=== PATIENT | male | born 1960 | race Caucasian/White ===

== ENCOUNTER 2018-01-02 20:00 | Inpatient (IN) | payer MEDICAID, MEDICARE ==
--- NOTE | 2018-01-02 21:15 | EKG REPORT ---
SEVERITY:- BORDERLINE ECG - SINUS RHYTHM PROBABLE LEFT ATRIAL ABNORMALITY BORDERLINE T WAVE ABNORMALITIES : Confirmed by: Dimas Rivera MD 02-Jan-2018 21:14:20
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
[2018-01-02 21:56] LABS: ABSOLUTE BASOPHILS # (AUTO) 0.1 10^3/uL (0.0-0.2); ABSOLUTE EOSINOPHILS # (AUTO) 0.1 10^3/uL (0.0-0.6); ABSOLUTE LYMPHOCYTES (AUTO) 1.4 10^3/uL (0.5-4.7); ABSOLUTE MONOCYTES (AUTO) 0.9 10^3/uL (0.1-1.4); ABSOLUTE NEUT (AUTO) 5.8 10^3/uL (1.7-8.2); BASOPHILS % (AUTO) 0.7 % (0-2); EOSINOPHILS % (AUTO) 0.6 % (0-6); HEMATOCRIT 33.3 % (37.9-51.0); HEMOGLOBIN 11.6 g/dL (13.5-17.0); LYMPHOCYTES % (AUTO) 17.6 % (13-45); MEAN CORPUSCULAR HEMOGLOBIN 32.3 pg (27.0-33.4); MEAN CORPUSCULAR HGB CONC 34.7 g/dL (32.0-36.0); MEAN CORPUSCULAR VOLUME 93 fl (80-97); MONOCYTES % (AUTO) 10.4 % (3-13); PLATELET COUNT 201 10^3/uL (150-450); RED BLOOD COUNT 3.57 10^6/uL (4.35-5.55); RED CELL DISTRIBUTION WIDTH 13.6 % (11.5-14.0); SEGMENTED NEUTROPHILS % (AUTO) 70.7 % (42-78); TOTAL CELLS COUNTED % (AUTO) 100 %; WHITE BLOOD COUNT 8.2 10^3/uL (4.0-10.5)
[2018-01-02 22:14] LABS: ALANINE AMINOTRANSFERASE 442 U/L (21-72); ALBUMIN 3.5 g/dL (3.5-5.0); ALKALINE PHOSPHATASE 117 U/L (38-126); ANION GAP 12 (5-19); BILIRUBIN,DIRECT 0.5 mg/dL (0.0-0.4); BILIRUBIN,TOTAL 0.7 mg/dL (0.2-1.3); BLOOD UREA NITROGEN 19 mg/dL (7-20); CALCIUM 8.8 mg/dL (8.4-10.2); CARBON DIOXIDE 29 mmol/L (22-30); CHLORIDE 84 mmol/L (98-107); SODIUM 125.1 mmol/L (137-145); TOTAL PROTEIN 6.3 g/dL (6.3-8.2)
[2018-01-02 22:32] LABS: ASPARTATE AMINO TRANSFERASE 869 U/L (17-59)
--- NOTE | 2018-01-02 22:32 | ER Document Report ---
ED General - General Chief Complaint: High Blood Sugar Stated Complaint: POSSIBLE HYPOGLYCEMIA Time Seen by Provider: 01/02/18 21:33 Notes: Patient is a 57-year-old male presents with complaint of high blood sugar. Patient says that they recently increased rent in his apartment. He therefore had to leave. Said he had his insulin stuff with him and then he thinks someone might of stool from his back. He normally takes 30 units of Lantus at night and then NovoLog 3 times a day. Patient says he has been several days now without his insulin. He says today start feels if his sugars get high. He said he also developed some indigestion in the he had some burning type sensation going into his chest but when he burped it relieves it. He does have history of DKA in the past. He says he does not feel as if he is to that point but he does not want to get to the point either. Also complains of depression. Says since being kicked out of his apartment is felt depressed and had thoughts of suicide, but no true suicidal plan. He also is a former alcoholic and says he did go back to drinking some alcohol. He says that it is not huge amounts but he is had 2 bottles of liquor over the course of the last 6 or 7 days. Denies any fevers. No vomiting. No diarrhea. No other complaints at this time. TRAVEL OUTSIDE OF THE [place] IN LAST 30 DAYS: No - Related Data Allergies/Adverse Reactions: Penicillins Allergy (Severe, Verified 04/17/15 08:30) Swelling of Throat Past Medical History - Social History Smoking Status: Unknown if Ever Smoked Frequency of alcohol use: Heavy Drug Abuse: None Family History: CAD Endocrine Medical History: Reports: Hx Diabetes Mellitus Type 1, Hx Diabetes Mellitus Type 2 GI Medical History: Reports: Hx Gastroesophageal Reflux Disease, Hx Ulcer Musculoskeltal Medical History: Reports Hx Arthritis - RA Psychiatric Medical History: Reports: Hx Depression Past Surgical History: Reports: Hx Cholecystectomy, Hx Orthopedic Surgery - right rotator, right hand carpel sheeba, left knee - Immunizations Hx Diphtheria, Pertussis, Tetanus Vaccination: Yes Hx Pneumococcal Vaccination: 04/23/14 Review of Systems - Review of Systems Notes: My Normal Review Basic REVIEW OF SYSTEMS: CONSTITUTIONAL : Denies fever, chills, or sweats. Denies recent illness. EENT: Denies eye, ear, throat, or mouth pain or symptoms. Denies nasal or sinus congestion. CARDIOVASCULAR: Lower chest pain RESPIRATORY: Denies cough, cold, or chest congestion. Denies shortness of breath, difficulty breathing, or wheezing. GASTROINTESTINAL: epigastric abdominal pain. Denies nausea, vomiting, or diarrhea. Denies constipation. Last BM: GENITOURINARY: Denies difficulty urinating, painful urination, burning, frequency, or blood in urine. MUSCULOSKELETAL: Denies neck or back pain or joint pain or swelling. SKIN: Denies rash or skin lesions. NEUROLOGICAL: Denies altered mental status or loss of consciousness. Denies headache. Denies weakness or paralysis or loss of use of either side. Denies problems with gait or speech. Denies sensory or motor loss. PSYCHIATRIC: Depression ALL OTHER SYSTEMS REVIEWED AND NEGATIVE. Physical Exam - Vital signs Vitals: Temp Pulse Resp BP Pulse Ox 98.2 F 99 20 130/84 H 99 01/02/18 20:34 01/02/18 20:34 01/02/18 20:34 01/02/18 20:34 01/02/18 20:34 - Notes Notes: General Appearance: Well nourished, alert, cooperative, no acute distress, no obvious discomfort. Vitals: reviewed, See vital signs table. Head: no swelling or tenderness to the head Eyes: PERRL, EOMI, Conjuctiva clear Mouth: No decreasd moisture Throat: No tonsillar inflammation, No airway obstruction, No lymphadenopathy Neck: Supple, no neck tenderness, Lungs: No wheezing, No rales, No rhonci, No accessory muscle use, good air exchange bilaterally. Heart: Normal rate, Regular rythm, No murmur, no rub Abdomen: Normal BS, soft, No rigidity, no diffuse abdominal tenderness, No guarding, no rebound, no abdominal masses, no organomegaly Extremities: strength 5/5 in all extremities, good pulses in all extremities, no swelling or tenderness in the extremities, no edema. Skin: warm, dry, appropriate color, no rash Neuro: speech clear, oriented x 3, normal affect, responds appropriately to questions. Course - Re-evaluation Re-evalutation: 01/02/18 23:[address] Bailey, patient's primary care physician, and reviewed the patient 's laboratory findings as well as history and presentation with him. He agrees to admit the patient. I did discuss plan with the patient he is agreeable to admission as well. Dictation of this chart was performed using voice recognition software; therefore, there may be some unintended grammatical errors. - Vital Signs Vital signs: Temp Pulse Resp BP Pulse Ox 98.2 F 99 20 130/84 H 99 01/02/18 20:34 01/02/18 20:34 01/02/18 20:34 01/02/18 20:34 01/02/18 20:34 - Laboratory Result Diagrams: 01/02/18 19:55 01/02/18 19:55 Laboratory results interpreted by me: 01/02/18 01/02/18 01/02/18 19:55 19:55 19:55 RBC 3.57 L Hgb 11.6 L Hct 33.3 L VBG pH Sodium 125.1 L Potassium 2.9 L* Chloride 84 L Glucose 421 H* Direct Bilirubin 0.5 H AST 869 H ALT 442 H Lipase 7614.2 H Urine Glucose (UA) Urine Blood 01/02/18 01/02/18 22:00 22:35 RBC Hgb Hct VBG pH 7.43 H Sodium Potassium Chloride Glucose Direct Bilirubin AST ALT Lipase Urine Glucose (UA) >=500 H Urine Blood SMALL H - EKG Interpretation by Me Additional EKG results interpreted by me: 01/02/18 22:31 EKG is reviewed and interpreted by me. EKG shows normal sinus rhythm with a rate of [address] segment elevation or depression. No ischemic T-wave inversions. CO interval, QRS duration, QTc intervals are within normal range. Old EKG for comparison is from April 17, 2015. Discharge - Discharge Clinical Impression: Hyperglycemia, Hypokalemia Pancreatitis Qualifiers: Chronicity: acute Pancreatitis type: alcohol induced Acute pancreatitis complication: no infection or necrosis Qualified Code(s): K85.20 - Alcohol induced acute pancreatitis without necrosis or infection Depression Qualifiers: Depression Type: unspecified Qualified Code(s): F32.9 - Major depressive disorder, single episode, unspecified Condition: Stable Disposition: ADMITTED INPATIENT Admitting Provider: Reanna Unit Admitted: [facility] Referrals: SHASHANK BAILEY MD [Primary Care Provider] - Follow up as needed
[2018-01-02 22:34] LABS: GLUCOSE 421 mg/dL (75-110); POTASSIUM 2.9 mmol/L (3.6-5.0)
[2018-01-02] MEDS ORDERED: POTASSIUM CHLORIDE 10 MEQ CAPSULE.ER PO ONE ×2 (22:37→22:44)
[2018-01-02] MEDS ORDERED: INSULIN REG, HUMAN 100 UNIT/ML 3 ML VIAL (PYX) SUBCUT ONE ×2 (22:37→23:40)
[2018-01-02] MEDS ORDERED: INSULIN GLARGINE,HUM.REC.ANLOG 1,000 UNIT/10 ML UNIT SUBCUT ONE (22:38)
[2018-01-02 22:39] LABS: APPEARANCE,URINE CLEAR; BILIRUBIN,URINE NEGATIVE (NEGATIVE); COLOR,URINE COLORLESS; GLUCOSE, URINE >=500 mg/dL (NEGATIVE); KETONES,URINE NEGATIVE (NEGATIVE); LEUKOCYTE ESTERASE,URINE NEGATIVE (NEGATIVE); NITRITE,URINE NEGATIVE (NEGATIVE); PROTEIN,URINE NEGATIVE (NEGATIVE); URINE SPECIFIC GRAVITY 1.003; UROBILINOGEN,URINE NEGATIVE mg/dL (<2.0)
[2018-01-02] MEDS ORDERED: NORMAL SALINE 1000 ML 1,000 ML IV ONE (22:44)
[2018-01-02] MEDS ORDERED: ONDANSETRON 4 MG TAB.RAPDIS PO ONE (22:44)
[2018-01-02 22:59] LABS: VENOUS BLOOD BASE EXCESS 5.9 mmol/L; VENOUS BLOOD HCO3 31.7 mmol/L (20-32); VENOUS BLOOD PCO2 49.3 mmHg (35-63); VENOUS BLOOD PH 7.43 (7.30-7.42)
[2018-01-02 23:27] LABS: LIPASE 7614.2 U/L (23-300)
[2018-01-02] MEDS ORDERED: FENTANYL CITRATE INJ/PF 100 MCG/2 ML AMPUL IV ONE (23:49)
[2018-01-02] MEDS: POTASSI CL 20 MEQ/50 ML RIDER 20 MEQ/50 ML RTUPB IV SCH (23:51)
[2018-01-03] MEDS ORDERED: POTASSI CL 20 MEQ/NS 1L 1000 ML IV PRN (01:42)
[2018-01-03] MEDS ORDERED: LORAZEPAM INJ 2 MG/1 ML VIAL IV PRN (01:50)
[2018-01-03] MEDS ORDERED: ZOLPIDEM TARTRATE 5 MG TABLET PO PRN (01:55)
[2018-01-03] MEDS ORDERED: IMIPENEM/CILASTATIN SODIUM INJ 500 MG VIAL IV PRN (01:58)
[2018-01-03] MEDS: POTASSI CL 20 MEQ/50 ML RIDER 20 MEQ/50 ML RTUPB IV SCH (02:50)
[2018-01-03] MEDS ORDERED: DEXTROSE 40% GEL 15 GM TUBE X 2 PO PRN (05:22)
[2018-01-03] MEDS ORDERED: DEXTROSE 50%-WATER SYRINGE 12.5 GM/25 ML DOSE IV PRN (05:22)
[2018-01-03] MEDS ORDERED: GLUCAGON,HUMAN RECOMB 1 MG INJ IM PRN (05:22)
[2018-01-03] MEDS ORDERED: DEXTROSE 40% GEL 15 GM TUBE PO PRN (05:22)
[2018-01-03] MEDS ORDERED: DEXTROSE 50%-WATER SYRINGE 25 GM/50 ML DOSE IV PRN (05:22)
[2018-01-03] MEDS ORDERED: ACETAMINOPHEN 325 MG TABLET PO PRN (05:48)
[2018-01-03] MEDS ORDERED: IMIPENEM/CILASTATIN SODIUM INJ 500 MG VIAL IV ONE (06:06)
[2018-01-03 06:26] LABS: HEMATOCRIT 33.3 % (37.9-51.0); HEMOGLOBIN 11.7 g/dL (13.5-17.0); MEAN CORPUSCULAR HEMOGLOBIN 32.2 pg (27.0-33.4); MEAN CORPUSCULAR HGB CONC 35.1 g/dL (32.0-36.0); MEAN CORPUSCULAR VOLUME 92 fl (80-97); PLATELET COUNT 191 10^3/uL (150-450); RED BLOOD COUNT 3.63 10^6/uL (4.35-5.55); RED CELL DISTRIBUTION WIDTH 13.5 % (11.5-14.0); WHITE BLOOD COUNT 5.8 10^3/uL (4.0-10.5)
[2018-01-03] MEDS: IMIPENEM/CILASTATIN SODIUM 500 MG in NORMAL SALINE 100 ML IV SCH ×4 (06:37→21:16)
[2018-01-03 06:47] LABS: ALANINE AMINOTRANSFERASE 462 U/L (21-72); ALKALINE PHOSPHATASE 100 U/L (38-126); AMYLASE 445 U/L (30-110); BILIRUBIN,DIRECT 0.2 mg/dL (0.0-0.4); BILIRUBIN,TOTAL 0.7 mg/dL (0.2-1.3); BLOOD UREA NITROGEN 13 mg/dL (7-20); CALCIUM 8.9 mg/dL (8.4-10.2); CHOLESTEROL 179.21 mg/dL (0-200); GLUCOSE 90 mg/dL (75-110); POTASSIUM 3.8 mmol/L (3.6-5.0); TOTAL PROTEIN 5.6 g/dL (6.3-8.2); TRIGLYCERIDES 95 mg/dL (<150)
[2018-01-03 06:52] LABS: ANION GAP 5 (5-19); CARBON DIOXIDE 33 mmol/L (22-30); CHLORIDE 103 mmol/L (98-107); SODIUM 141.2 mmol/L (137-145)
[2018-01-03 06:58] LABS: DIRECT LDL 90 mg/dL (<100)
[2018-01-03 06:59] LABS: ASPARTATE AMINO TRANSFERASE 834 U/L (17-59)
[2018-01-03 07:06] LABS: LIPASE 6482.9 U/L (23-300)
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
[2018-01-03] MEDS: LISINOPRIL 10 MG TABLET PO SCH (10:06)
[2018-01-03] MEDS: CITALOPRAM HYDROBROMIDE 20 MG TABLET PO SCH (10:07)
[2018-01-03] MEDS: GABAPENTIN 400 MG CAPSULE PO SCH ×3 (10:07→17:46)
[2018-01-03] MEDS: ENOXAPARIN SODIUM INJ 40 MG/0.4 ML DISP.SYRIN SUBCUT SCH (10:11)
[2018-01-03] MEDS: PANTOPRAZOLE SODIUM 40 MG VIAL IV SCH (10:12)
[2018-01-03] MEDS: MORPHINE SULFATE 10 MG/ML INJ IV PRN ×3 (10:13→21:43)
--- NOTE | 2018-01-03 11:25 | RADIOLOGY REPORT (SQ) ---
EXAM DESCRIPTION: U/S ABDOMEN COMPLETE W/DOPPLER COMPLETED DATE/TIME: 01/03/2018 10:40 am REASON FOR STUDY: pancreatitis COMPARISON: Abdominal series 04/17/2015 TECHNIQUE: Dynamic and static grayscale images acquired of the abdomen and recorded on PACS. Additio nal selected color Doppler and spectral images recorded. LIMITATIONS: Upper abdominal bowel gas. Pancreatic tail and spleen not well seen. FINDINGS: PANCREAS: Midline pancreas is unremarkable LIVER: No masses. Echotexture normal. LIVER VASCULATURE: Normal directional flow of the main portal vein and hepatic veins. GALLBLADDER: Surgically absent ULTRASOUND-DETECTED MAE'S SIGN: Not applicable INTRAHEPATIC DUCTS AND COMMON DUCT: CBD and intrahepatic ducts normal caliber. No filling defects. INFERIOR VENA CAVA: Normal flow. AORTA: No aneurysm. RIGHT KIDNEY: Normal size. Normal echogenicity. No solid or suspicious masses. No hydronephros is. No calcifications. LEFT KIDNEY: Normal size. Normal echogenicity. No solid or suspicious masses. 3 cm cyst left up per pole kidney. No hydronephrosis. No calcifications. SPLEEN: Not well seen PERITONEAL AND PLEURAL SPACES: No ascites or effusions. OTHER: No other significant finding. IMPRESSION: Post cholecystectomy. No biliary ductal dilatation. Pancreatic tail and spleen are not well seen. Otherwise unremarkable study. TECHNICAL DOCUMENTATION: JOB ID: [id number] [employer]- All Rights Reserved Reading location - IP/workstation name: [email or web address]
[2018-01-03] MEDS ORDERED: POTASSI CL 20 MEQ/D5NS 1L 1000 ML IV PRN (12:03)
[2018-01-03] MEDS: POTASSI CL 20 MEQ/D5NS 1L 1000 ML IV PRN (12:06)
--- NOTE | 2018-01-03 16:26 | PSYCHOLOGICAL NOTE ---
Psych Note - Psych Note Psych Note: Reason for Consult: Depression Patient is a 57-year-old male presents with complaint of high blood sugar. Patient says that they recently increased rent in his apartment. He therefore had to leave. He reports depression and requests psychiatric evaluation. Patient disclosed that he has been feeling very depressed because on December 22 he had to leave his apartment. He states that he had that apartment for 3 years and was never late for any of his rent or bills. He states that they increased his rent which she was unable to continue pain so packed his stuff up and left. He confirms he did not wait for eviction process because he did not want to get the "law involved." He reports that he has been homeless before but is very despondent of having "to do this again." Disclosed frustration with "greed ," which he blames for losing his apartment. He reports he makes just enough money to pay his bills and rent however when it was increased he was unable to do that. He disclosed he went [facility] [place] [facility] and then the set her hotel however there is no availability. He expressed suicidal comments however states that if he received assistance or a plan on how to get back on his feet he could "see a way out." He disclosed that he needs a fridge for his medications and has also lost his food stamps; "but I just have a place to stay I can deal with not having food stamps." Patient reports that he has relapsed on drinking after about 20 years of sobriety because of this. Patient is alert and orientated to person, place, time and circumstance. Mood is he dysphoric with restricted affect. Patient expresses passive suicidal ideation i.e. no plans means or intent. While patient makes some suicidal comments, patient is forward thinking and denies wanting to harm himself as long as he gets help. Patient denies homicidal ideation. Delusions are absent behaviors congruent with intact reality based presentation i.e. organized and linear thought processes. Eye contact is well-maintained. Conversational speech was within normal rate, tone and prosody. Intellectual abilities appear to be within the average range. Attention and concentration were good. Insight , judgment, impulse control is fair. Clinician contacted [facility] to submit referral for patient for further assistance V60.0 (Z59.0) homelessness 311 (F32.9) unspecified depressive disorder in connection with homelessness Impression\\plan: Patient is cleared from acute psychiatric services. Patient discloses being depressed and overwhelmed from being homeless. Patient expresses passive suicidal ideation i.e. no plans means or intent. While patient does make some suicidal comments patient is forward thinking and denies wanting to harm himself if he receives assistance. Patient does not meet IVC criteria per [place] 122C. referral has been submitted to the community [facility]ics program. Patient is recommended for continued outpatient substance abuse and mental health treatment upon discharge. Patient can receive mental health crisis support with [facility]. Dr. Knowles was consulted and the care and management of this patient.
[2018-01-03] MEDS: INSULIN LISPRO 100 UNIT/ML 3 ML VIAL SUBCUT PRN ×2 (19:09→22:11)
[2018-01-03] MEDS: PROMETHAZINE HCL INJ 25 MG/1 ML VIAL IV PRN (21:38)
[2018-01-03] MEDS ORDERED: INSULIN GLARGINE,HUM.REC.ANLOG 300 UNIT/3 ML INSULN.PEN SUBCUT SCH (22:00)
[2018-01-04] MEDS: IMIPENEM/CILASTATIN SODIUM 500 MG in NORMAL SALINE 100 ML IV SCH ×4 (03:51→21:57)
[2018-01-04] MEDS: POTASSI CL 20 MEQ/D5NS 1L 1000 ML IV PRN (03:51)
[2018-01-04] MEDS: MORPHINE SULFATE 10 MG/ML INJ IV PRN ×4 (04:01→21:57)
[2018-01-04 05:21] LABS: HEMATOCRIT 33.8 % (37.9-51.0); HEMOGLOBIN 11.7 g/dL (13.5-17.0); MEAN CORPUSCULAR HEMOGLOBIN 32.5 pg (27.0-33.4); MEAN CORPUSCULAR HGB CONC 34.6 g/dL (32.0-36.0); MEAN CORPUSCULAR VOLUME 94 fl (80-97); PLATELET COUNT 238 10^3/uL (150-450); RED BLOOD COUNT 3.59 10^6/uL (4.35-5.55); RED CELL DISTRIBUTION WIDTH 13.9 % (11.5-14.0); WHITE BLOOD COUNT 7.8 10^3/uL (4.0-10.5)
[2018-01-04 05:43] LABS: ALANINE AMINOTRANSFERASE 505 U/L (21-72); ALBUMIN 2.9 g/dL (3.5-5.0); ALKALINE PHOSPHATASE 96 U/L (38-126); AMYLASE 386 U/L (30-110); ANION GAP 7 (5-19); ASPARTATE AMINO TRANSFERASE 685 U/L (17-59); BILIRUBIN,DIRECT 0.3 mg/dL (0.0-0.4); BILIRUBIN,TOTAL 0.4 mg/dL (0.2-1.3); BLOOD UREA NITROGEN 11 mg/dL (7-20); CALCIUM 8.7 mg/dL (8.4-10.2); CARBON DIOXIDE 29 mmol/L (22-30); CHLORIDE 107 mmol/L (98-107); CHOLESTEROL 156.31 mg/dL (0-200); GLUCOSE 44 mg/dL (75-110); POTASSIUM 3.4 mmol/L (3.6-5.0); TOTAL PROTEIN 5.4 g/dL (6.3-8.2); TRIGLYCERIDES 110 mg/dL (<150)
[2018-01-04 05:52] LABS: LIPASE 3527.1 U/L (23-300)
[2018-01-04 05:54] LABS: DIRECT LDL 81 mg/dL (<100)
[2018-01-04] MEDS: PANTOPRAZOLE SODIUM 40 MG VIAL IV SCH (09:47)
[2018-01-04] MEDS: GABAPENTIN 400 MG CAPSULE PO SCH ×3 (09:48→17:45)
[2018-01-04] MEDS: CITALOPRAM HYDROBROMIDE 20 MG TABLET PO SCH (09:48)
[2018-01-04] MEDS: LISINOPRIL 10 MG TABLET PO SCH (09:48)
[2018-01-04] MEDS: ENOXAPARIN SODIUM INJ 40 MG/0.4 ML DISP.SYRIN SUBCUT SCH (09:50)
[2018-01-04] MEDS ORDERED: POTASSI CL 20 MEQ/50 ML RIDER 20 MEQ/50 ML RTUPB IV ONE (10:00)
[2018-01-04] MEDS: PROMETHAZINE HCL INJ 25 MG/1 ML VIAL IV PRN (14:57)
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
[2018-01-04] MEDS: INSULIN LISPRO 100 UNIT/ML 3 ML VIAL SUBCUT PRN (17:45)
[2018-01-04] MEDS ORDERED: POTASSI CL 20 MEQ/D5NS 1L 1000 ML IV PRN (19:06)
[2018-01-04] MEDS ORDERED: DEXTROSE 5%-WATER 1000 ML 1,000 ML with POTASSIUM CHLORIDE 20 MEQ IV PRN ×2 (20:00)
[2018-01-05] MEDS: INSULIN LISPRO 100 UNIT/ML 3 ML VIAL SUBCUT PRN ×3 (02:54→21:33)
[2018-01-05] MEDS: IMIPENEM/CILASTATIN SODIUM 500 MG in NORMAL SALINE 100 ML IV SCH ×4 (02:54→20:28)
[2018-01-05] MEDS: MORPHINE SULFATE 10 MG/ML INJ IV PRN ×4 (02:54→17:39)
[2018-01-05 05:28] LABS: ABSOLUTE BASOPHILS # (AUTO) 0.1 10^3/uL (0.0-0.2); ABSOLUTE EOSINOPHILS # (AUTO) 0.3 10^3/uL (0.0-0.6); ABSOLUTE LYMPHOCYTES (AUTO) 2.5 10^3/uL (0.5-4.7); ABSOLUTE MONOCYTES (AUTO) 1.2 10^3/uL (0.1-1.4); ABSOLUTE NEUT (AUTO) 3.6 10^3/uL (1.7-8.2); BASOPHILS % (AUTO) 0.9 % (0-2); EOSINOPHILS % (AUTO) 3.7 % (0-6); HEMATOCRIT 33.5 % (37.9-51.0); HEMOGLOBIN 11.6 g/dL (13.5-17.0); LYMPHOCYTES % (AUTO) 32.5 % (13-45); MEAN CORPUSCULAR HEMOGLOBIN 32.3 pg (27.0-33.4); MEAN CORPUSCULAR HGB CONC 34.4 g/dL (32.0-36.0); MEAN CORPUSCULAR VOLUME 94 fl (80-97); MONOCYTES % (AUTO) 15.3 % (3-13); PLATELET COUNT 297 10^3/uL (150-450); RED BLOOD COUNT 3.57 10^6/uL (4.35-5.55); RED CELL DISTRIBUTION WIDTH 14.1 % (11.5-14.0); SEGMENTED NEUTROPHILS % (AUTO) 47.6 % (42-78); TOTAL CELLS COUNTED % (AUTO) 100 %; WHITE BLOOD COUNT 7.6 10^3/uL (4.0-10.5)
[2018-01-05 05:58] LABS: ALANINE AMINOTRANSFERASE 482 U/L (21-72); ALBUMIN 2.9 g/dL (3.5-5.0); ALKALINE PHOSPHATASE 96 U/L (38-126); AMYLASE 278 U/L (30-110); ANION GAP 7 (5-19); ASPARTATE AMINO TRANSFERASE 572 U/L (17-59); BILIRUBIN,DIRECT 0.3 mg/dL (0.0-0.4); BILIRUBIN,TOTAL 0.3 mg/dL (0.2-1.3); BLOOD UREA NITROGEN 7 mg/dL (7-20); CALCIUM 8.9 mg/dL (8.4-10.2); CARBON DIOXIDE 29 mmol/L (22-30); CHLORIDE 105 mmol/L (98-107); GLUCOSE 158 mg/dL (75-110); LIPASE 1877.5 U/L (23-300); POTASSIUM 3.8 mmol/L (3.6-5.0); SODIUM 140.9 mmol/L (137-145); TOTAL PROTEIN 5.7 g/dL (6.3-8.2)
[2018-01-05] MEDS: GABAPENTIN 400 MG CAPSULE PO SCH ×3 (08:46→17:30)
[2018-01-05] MEDS: LISINOPRIL 10 MG TABLET PO SCH (08:46)
[2018-01-05] MEDS: CITALOPRAM HYDROBROMIDE 20 MG TABLET PO SCH (08:47)
[2018-01-05] MEDS: PANTOPRAZOLE SODIUM 40 MG VIAL IV SCH (08:49)
[2018-01-05] MEDS: ENOXAPARIN SODIUM INJ 40 MG/0.4 ML DISP.SYRIN SUBCUT SCH (08:49)
[2018-01-05 11:40] LABS: HEPATITIS A AB IGM Negative (Negative); HEPATITIS B CORE AB IGM Negative (Negative); HEPATITS B SURFACE ANTIGEN Negative (Negative)
[2018-01-05] MEDS ORDERED: INSULIN GLARGINE,HUM.REC.ANLOG 1,000 UNIT/10 ML UNIT SUBCUT ONE (13:00)
[2018-01-05] MEDS ORDERED: INSULIN LISPRO 100 UNIT/ML 3 ML VIAL SUBCUT ONE (13:00)
[2018-01-05 13:59] LABS: HEPATITIS C VIRUS ANTIBODY >11.0 s/co ratio (0.0-0.9)
--- NOTE | 2018-01-05 16:50 | PDOC PROGRESS REPORT ---
Subjective Progress Note for:: 01/05/18 Subjective:: He is doing better and no longer having nausea and he is tolerating food. His blood sugar this am was >550. We D/C IV Fluids Dextrose in saline and was given humalog insulin 20 iu stat subcut. We will keep the pt for the weekend since he is homeless ad has social issues. Reason For Visit: PANCREATITIS Physical Exam Vital Signs: Temp Pulse Resp BP Pulse Ox 97.7 F 89 21 H 127/73 H 100 01/05/18 15:24 01/05/18 15:24 01/05/18 15:24 01/05/18 15:24 01/05/18 15:24 Intake & Output 01/04/18 01/05/18 01/06/18 06:59 06:59 06:59 Intake Total 3131 4510 700 Output Total 3600 5625 500 Balance -469 -1115 200 Weight 62.9 kg 62.9 kg General appearance: PRESENT: no acute distress, cooperative, obese, well- developed, well-nourished Head exam: PRESENT: atraumatic, normocephalic Eye exam: PRESENT: EOMI, PERRLA Mouth exam: PRESENT: moist, neck supple, tongue midline Respiratory exam: PRESENT: clear to auscultation sanjiv, symmetrical Cardiovascular exam: PRESENT: +S1, +S2 Pulses: PRESENT: +2 pedal pulses bilateral GI/Abdominal exam: PRESENT: normal bowel sounds, soft Rectal exam: PRESENT: deferred Extremities exam: PRESENT: full ROM Musculoskeletal exam: PRESENT: full ROM Neurological exam: PRESENT: alert, awake, oriented to person, oriented to place , oriented to time Psychiatric exam: PRESENT: normal mood Results Laboratory Results: 01/05/18 05:12 01/05/18 05:12 01/05/18 01/05/18 05:12 05:12 WBC 7.6 RBC 3.57 L Hgb 11.6 L Hct 33.5 L MCV 94 MCH 32.3 MCHC 34.4 RDW 14.1 H Plt Count 297 Seg Neutrophils % 47.6 Lymphocytes % 32.5 Monocytes % 15.3 H Eosinophils % 3.7 Basophils % 0.9 Absolute Neutrophils 3.6 Absolute Lymphocytes 2.5 Absolute Monocytes 1.2 Absolute Eosinophils 0.3 Absolute Basophils 0.1 Sodium 140.9 Potassium 3.8 Chloride 105 Carbon Dioxide 29 Anion Gap 7 BUN 7 Creatinine 0.84 Est GFR ( Amer) > 60 Est GFR (Non-Af Amer) > 60 Glucose 158 H Calcium 8.9 Total Bilirubin 0.3 AST 572 H ALT 482 H Alkaline Phosphatase 96 Total Protein 5.7 L Albumin 2.9 L Amylase 278 H Lipase 1877.5 H Impressions: Abdomen Ultrasound 01/03/18 00:00 IMPRESSION: Post cholecystectomy. No biliary ductal dilatation. Pancreatic tail and spleen are not well seen. Otherwise unremarkable study. Assessment & Plan - Diagnosis (1) Acute pancreatitis Qualifiers: Pancreatitis type: alcohol induced Acute pancreatitis complication: unspecified Qualified Code(s): K85.20 - Alcohol induced acute pancreatitis without necrosis or infection Is this a current diagnosis for this admission?: Yes Plan: Ct with cardiac diet as tolerated; Morphine 2mg q4h IV prn; Promethazine 25 mg q6h IV prn since Zofran is out of stock. Ct with Imipenem 500 mg q6h IV. (2) Uncontrolled diabetes mellitus Qualifiers: Diabetes mellitus type: type 2 Diabetes mellitus [facility] insulin use: with [facility] use Diabetes mellitus complication detail: with polyneuropathy Is this a current diagnosis for this admission?: Yes Plan: Ct with accucheck q4h with slidding scale with humalog insuliin [facility] protocol; Ct with Lantus 40 iu qhs subcut; ct with 1800 calorie ADA diet. (3) Hypokalemia Is this a current diagnosis for this admission?: Yes Plan: He got KCL IV 20 MEQ and KCL PO at ED. He was given additional KCL 20 MEQ IVx1 today; monitor chemistries daily. (4) Hypertension Qualifiers: Hypertension type: essential hypertension Qualified Code(s): I10 - Essential (primary) hypertension Is this a current diagnosis for this admission?: Yes Plan: Ct with Lisinopril 20 mg qd po; 2 g sodium diet . (5) Hyperlipidemia Qualifiers: Hyperlipidemia type: mixed hyperlipidemia Qualified Code(s): E78.2 - Mixed hyperlipidemia Is this a current diagnosis for this admission?: Yes Plan: Ct with Atorvastatin 20mg qhs po; 200 mg cholesterol diet. (6) Gastroesophageal reflux disease Is this a current diagnosis for this admission?: Yes Plan: Ct with Protonix 40 mg qd IV. (7) Diabetic neuropathy Is this a current diagnosis for this admission?: Yes Plan: Ct with Gabapentin 800mg TID po. (8) Depression Qualifiers: Depression Type: unspecified Qualified Code(s): F32.9 - Major depressive disorder, single episode, unspecified Is this a current diagnosis for this admission?: Yes Plan: Ct with Citalopram 20 mg qd po. (9) AA (alcohol abuse) Is this a current diagnosis for this admission?: Yes Plan: Alcohol counseling done. Ativan 1mg q6h IV prn for anxiety/agitation. (10) DVT prophylaxis Is this a current diagnosis for this admission?: Yes Plan: Ct with Lovenox 40 mg qd subcut; SCD.
[2018-01-06] MEDS: IMIPENEM/CILASTATIN SODIUM 500 MG in NORMAL SALINE 100 ML IV SCH ×2 (02:20→09:00)
[2018-01-06] MEDS: LANSOPRAZOLE 30 MG TAB.RAP.DR PO SCH (05:12)
[2018-01-06 05:49] LABS: ABSOLUTE BASOPHILS # (AUTO) 0.1 10^3/uL (0.0-0.2); ABSOLUTE EOSINOPHILS # (AUTO) 0.2 10^3/uL (0.0-0.6); ABSOLUTE LYMPHOCYTES (AUTO) 2.1 10^3/uL (0.5-4.7); ABSOLUTE MONOCYTES (AUTO) 1.1 10^3/uL (0.1-1.4); ABSOLUTE NEUT (AUTO) 3.2 10^3/uL (1.7-8.2); BASOPHILS % (AUTO) 1.1 % (0-2); EOSINOPHILS % (AUTO) 3.4 % (0-6); HEMATOCRIT 31.4 % (37.9-51.0); HEMOGLOBIN 10.9 g/dL (13.5-17.0); LYMPHOCYTES % (AUTO) 31.2 % (13-45); MEAN CORPUSCULAR HGB CONC 34.7 g/dL (32.0-36.0); MEAN CORPUSCULAR VOLUME 95 fl (80-97); MONOCYTES % (AUTO) 16.6 % (3-13); PLATELET COUNT 303 10^3/uL (150-450); RED CELL DISTRIBUTION WIDTH 14.1 % (11.5-14.0); SEGMENTED NEUTROPHILS % (AUTO) 47.7 % (42-78); TOTAL CELLS COUNTED % (AUTO) 100 %; WHITE BLOOD COUNT 6.8 10^3/uL (4.0-10.5)
[2018-01-06 06:07] LABS: ALANINE AMINOTRANSFERASE 343 U/L (21-72); ALBUMIN 2.9 g/dL (3.5-5.0); ALKALINE PHOSPHATASE 101 U/L (38-126); AMYLASE 202 U/L (30-110); ANION GAP 14 (5-19); ASPARTATE AMINO TRANSFERASE 190 U/L (17-59); BILIRUBIN,DIRECT 0.4 mg/dL (0.0-0.4); BILIRUBIN,TOTAL 0.5 mg/dL (0.2-1.3); BLOOD UREA NITROGEN 13 mg/dL (7-20); CALCIUM 8.9 mg/dL (8.4-10.2); CARBON DIOXIDE 22 mmol/L (22-30); CHLORIDE 98 mmol/L (98-107); GLUCOSE 367 mg/dL (75-110); SODIUM 134.2 mmol/L (137-145); TOTAL PROTEIN 5.1 g/dL (6.3-8.2)
[2018-01-06] MEDS: INSULIN LISPRO 100 UNIT/ML 3 ML VIAL SUBCUT PRN ×3 (06:33→16:51)
[2018-01-06] MEDS: ENOXAPARIN SODIUM INJ 40 MG/0.4 ML DISP.SYRIN SUBCUT SCH (09:00)
[2018-01-06] MEDS ORDERED: INSULIN GLARGINE,HUM.REC.ANLOG 1,000 UNIT/10 ML UNIT SUBCUT ONE (11:00)
[2018-01-06] MEDS: GABAPENTIN 400 MG CAPSULE PO SCH ×2 (14:50→16:51)
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
[2018-01-06] MEDS ORDERED: INSULIN LISPRO 100 UNIT/ML 3 ML VIAL SUBCUT ONE (21:15)
[2018-01-07] MEDS: LANSOPRAZOLE 30 MG TAB.RAP.DR PO SCH (05:42)
[2018-01-07 06:20] LABS: ABSOLUTE BASOPHILS # (AUTO) 0.1 10^3/uL (0.0-0.2); ABSOLUTE EOSINOPHILS # (AUTO) 0.2 10^3/uL (0.0-0.6); ABSOLUTE LYMPHOCYTES (AUTO) 2.7 10^3/uL (0.5-4.7); ABSOLUTE MONOCYTES (AUTO) 1.3 10^3/uL (0.1-1.4); ABSOLUTE NEUT (AUTO) 3.6 10^3/uL (1.7-8.2); BASOPHILS % (AUTO) 1.2 % (0-2); EOSINOPHILS % (AUTO) 2.8 % (0-6); HEMATOCRIT 29.8 % (37.9-51.0); HEMOGLOBIN 10.5 g/dL (13.5-17.0); LYMPHOCYTES % (AUTO) 34.2 % (13-45); MEAN CORPUSCULAR HGB CONC 35.2 g/dL (32.0-36.0); MEAN CORPUSCULAR VOLUME 94 fl (80-97); MONOCYTES % (AUTO) 16.2 % (3-13); PLATELET COUNT 413 10^3/uL (150-450); RED BLOOD COUNT 3.18 10^6/uL (4.35-5.55); RED CELL DISTRIBUTION WIDTH 14.1 % (11.5-14.0); SEGMENTED NEUTROPHILS % (AUTO) 45.6 % (42-78); TOTAL CELLS COUNTED % (AUTO) 100 %
[2018-01-07 06:43] LABS: ALANINE AMINOTRANSFERASE 250 U/L (21-72); ALBUMIN 2.9 g/dL (3.5-5.0); ALKALINE PHOSPHATASE 86 U/L (38-126); AMYLASE 320 U/L (30-110); ANION GAP 8 (5-19); ASPARTATE AMINO TRANSFERASE 107 U/L (17-59); BILIRUBIN,DIRECT 0.3 mg/dL (0.0-0.4); BILIRUBIN,TOTAL 0.3 mg/dL (0.2-1.3); BLOOD UREA NITROGEN 21 mg/dL (7-20); CALCIUM 9.1 mg/dL (8.4-10.2); CARBON DIOXIDE 29 mmol/L (22-30); CHLORIDE 101 mmol/L (98-107); GLUCOSE 159 mg/dL (75-110); POTASSIUM 4.4 mmol/L (3.6-5.0); SODIUM 137.6 mmol/L (137-145); TOTAL PROTEIN 5.4 g/dL (6.3-8.2)
[2018-01-07 07:02] LABS: LIPASE 3606.7 U/L (23-300)
[2018-01-07] MEDS: INSULIN LISPRO 100 UNIT/ML 3 ML VIAL SUBCUT PRN ×3 (07:28→17:01)
[2018-01-07] MEDS: INSULIN GLARGINE,HUM.REC.ANLOG 300 UNIT/3 ML INSULN.PEN SUBCUT SCH (09:04)
[2018-01-07] MEDS: ENOXAPARIN SODIUM INJ 40 MG/0.4 ML DISP.SYRIN SUBCUT SCH (09:04)
[2018-01-07] MEDS: CITALOPRAM HYDROBROMIDE 20 MG TABLET PO SCH (09:04)
[2018-01-07] MEDS: LISINOPRIL 10 MG TABLET PO SCH (09:04)
[2018-01-07] MEDS: GABAPENTIN 400 MG CAPSULE PO SCH ×3 (09:05→17:01)
[2018-01-07] MEDS: HYDROMORPHONE HCL INJ/PF 2 MG/ML AMPULE IV PRN ×3 (10:17→20:13)
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
[2018-01-08] MEDS: HYDROMORPHONE HCL INJ/PF 2 MG/ML AMPULE IV PRN ×3 (01:19→11:11)
[2018-01-08] MEDS: LANSOPRAZOLE 30 MG TAB.RAP.DR PO SCH (06:25)
[2018-01-08 08:58] LABS: ANION GAP 10 (5-19); BLOOD UREA NITROGEN 14 mg/dL (7-20); CALCIUM 9.1 mg/dL (8.4-10.2); CARBON DIOXIDE 28 mmol/L (22-30); CHLORIDE 102 mmol/L (98-107); GLUCOSE 202 mg/dL (75-110); POTASSIUM 4.6 mmol/L (3.6-5.0); SODIUM 139.5 mmol/L (137-145)
[2018-01-08 09:07] LABS: LIPASE 2036.4 U/L (23-300)
[2018-01-08] MEDS: GABAPENTIN 400 MG CAPSULE PO SCH ×3 (09:34→17:31)
[2018-01-08] MEDS: LISINOPRIL 10 MG TABLET PO SCH (09:34)
[2018-01-08] MEDS: CITALOPRAM HYDROBROMIDE 20 MG TABLET PO SCH (09:35)
[2018-01-08] MEDS: ENOXAPARIN SODIUM INJ 40 MG/0.4 ML DISP.SYRIN SUBCUT SCH (09:35)
[2018-01-08] MEDS: INSULIN GLARGINE,HUM.REC.ANLOG 300 UNIT/3 ML INSULN.PEN SUBCUT SCH (09:42)
[2018-01-08] MEDS: INSULIN LISPRO 100 UNIT/ML 3 ML VIAL SUBCUT PRN ×3 (12:19→21:23)
--- NOTE | 2018-01-08 16:51 | PDOC PROGRESS REPORT ---
Subjective Progress Note for:: 01/08/18 Subjective:: He is feeling better and no more epigastric pain and nausea/vomiting. He is tolerating regular food.We will D/C Dilaudid and switch him to Oxycodone 5mg q6h prn. We will f/u with skinning machine feeder for assist with getting low income apartment on discharge. For possible discharge tomorrow or monday. Reason For Visit: PANCREATITIS Physical Exam Vital Signs: Temp Pulse Resp BP Pulse Ox 98.0 F 75 18 125/65 100 01/08/18 15:43 01/08/18 15:43 01/08/18 15:43 01/08/18 15:43 01/08/18 15:43 Intake & Output 01/07/18 01/08/18 01/09/18 06:59 06:59 06:59 Intake Total 3444 4021 829 Output Total 3310 5325 1125 Balance 134 -1304 -296 Weight 61.5 kg 61.7 kg General appearance: PRESENT: no acute distress, cooperative, well-developed, well-nourished Head exam: PRESENT: atraumatic, normocephalic Eye exam: PRESENT: EOMI, PERRLA Ear exam: PRESENT: normal external ear exam Mouth exam: PRESENT: moist, neck supple, tongue midline Neck exam: PRESENT: full ROM Respiratory exam: PRESENT: clear to auscultation sanjiv, symmetrical Cardiovascular exam: PRESENT: +S1, +S2 Pulses: PRESENT: +2 pedal pulses bilateral GI/Abdominal exam: PRESENT: normal bowel sounds, soft Rectal exam: PRESENT: deferred Extremities exam: PRESENT: full ROM Musculoskeletal exam: PRESENT: full ROM Neurological exam: PRESENT: alert, awake, oriented to person, oriented to place , oriented to time Psychiatric exam: PRESENT: normal mood Results Laboratory Results: 01/07/18 05:20 01/08/18 08:33 01/08/18 08:33 Sodium 139.5 Potassium 4.6 Chloride 102 Carbon Dioxide 28 Anion Gap 10 BUN 14 Creatinine 0.85 Est GFR ( Amer) > 60 Est GFR (Non-Af Amer) > 60 Glucose 202 H Calcium 9.1 Lipase 2036.4 H Impressions: Abdomen Ultrasound 01/03/18 00:00 IMPRESSION: Post cholecystectomy. No biliary ductal dilatation. Pancreatic tail and spleen are not well seen. Otherwise unremarkable study. Assessment & Plan - Diagnosis (1) Acute pancreatitis Qualifiers: Pancreatitis type: alcohol induced Acute pancreatitis complication: unspecified Qualified Code(s): K85.20 - Alcohol induced acute pancreatitis without necrosis or infection Is this a current diagnosis for this admission?: Yes Plan: Ct with cardiac diet as tolerated; Oxycodone 5 mg q6h prn po. Promethazine 25 mg q6h IV prn since Zofran is out of stock. Ct with Imipenem 500 mg q6h IV. (2) Uncontrolled diabetes mellitus Qualifiers: Diabetes mellitus type: type 2 Diabetes mellitus director of vocational guidance insulin use: with director of vocational guidance use Diabetes mellitus complication detail: with polyneuropathy Is this a current diagnosis for this admission?: Yes Plan: Ct with accucheck q4h with slidding scale with humalog insuliin [facility] protocol; Ct with Lantus 40 iu qhs subcut; ct with 1800 calorie ADA diet. (3) Hypokalemia Is this a current diagnosis for this admission?: Yes Plan: He got KCL IV 20 MEQ and KCL PO at ED. He was given additional KCL 20 MEQ IVx1 today; monitor chemistries daily. (4) Hypertension Qualifiers: Hypertension type: essential hypertension Qualified Code(s): I10 - Essential (primary) hypertension Is this a current diagnosis for this admission?: Yes Plan: Ct with Lisinopril 20 mg qd po; 2 g sodium diet . (5) Hyperlipidemia Qualifiers: Hyperlipidemia type: mixed hyperlipidemia Qualified Code(s): E78.2 - Mixed hyperlipidemia Is this a current diagnosis for this admission?: Yes Plan: Ct with Atorvastatin 20mg qhs po; 200 mg cholesterol diet. (6) Gastroesophageal reflux disease Is this a current diagnosis for this admission?: Yes Plan: Ct with Prevacid 30 mg qd po. (7) Diabetic neuropathy Is this a current diagnosis for this admission?: Yes Plan: Ct with Gabapentin 800mg TID po. (8) Depression Qualifiers: Depression Type: unspecified Qualified Code(s): F32.9 - Major depressive disorder, single episode, unspecified Is this a current diagnosis for this admission?: Yes Plan: Ct with Citalopram 20 mg qd po. (9) AA (alcohol abuse) Is this a current diagnosis for this admission?: Yes Plan: Alcohol counseling done. Ativan 1mg q6h IV prn for anxiety/agitation. (10) DVT prophylaxis Is this a current diagnosis for this admission?: Yes Plan: Ct with Lovenox 40 mg qd subcut; SCD.
[2018-01-08] MEDS: OXYCODONE HCL IR 5 MG TABLET PO PRN (17:32)
[2018-01-09 05:58] LABS: ABSOLUTE EOSINOPHILS # (AUTO) 0.2 10^3/uL (0.0-0.6); ABSOLUTE LYMPHOCYTES (AUTO) 2.4 10^3/uL (0.5-4.7); ABSOLUTE MONOCYTES (AUTO) 1.3 10^3/uL (0.1-1.4); ABSOLUTE NEUT (AUTO) 4.2 10^3/uL (1.7-8.2); BASOPHILS % (AUTO) 0.5 % (0-2); EOSINOPHILS % (AUTO) 2.4 % (0-6); HEMATOCRIT 32.2 % (37.9-51.0); HEMOGLOBIN 10.9 g/dL (13.5-17.0); LYMPHOCYTES % (AUTO) 29.5 % (13-45); MEAN CORPUSCULAR HEMOGLOBIN 32.1 pg (27.0-33.4); MEAN CORPUSCULAR VOLUME 94 fl (80-97); MONOCYTES % (AUTO) 15.7 % (3-13); PLATELET COUNT 489 10^3/uL (150-450); RED BLOOD COUNT 3.41 10^6/uL (4.35-5.55); RED CELL DISTRIBUTION WIDTH 14.6 % (11.5-14.0); SEGMENTED NEUTROPHILS % (AUTO) 51.9 % (42-78); TOTAL CELLS COUNTED % (AUTO) 100 %; WHITE BLOOD COUNT 8.1 10^3/uL (4.0-10.5)
[2018-01-09] MEDS: LANSOPRAZOLE 30 MG TAB.RAP.DR PO SCH (06:09)
[2018-01-09] MEDS: OXYCODONE HCL IR 5 MG TABLET PO PRN ×2 (06:11→14:10)
[2018-01-09 06:35] LABS: ALANINE AMINOTRANSFERASE 192 U/L (21-72); ALBUMIN 3.1 g/dL (3.5-5.0); ALKALINE PHOSPHATASE 78 U/L (38-126); ANION GAP 8 (5-19); ASPARTATE AMINO TRANSFERASE 101 U/L (17-59); BILIRUBIN,DIRECT 0.2 mg/dL (0.0-0.4); BILIRUBIN,TOTAL 0.2 mg/dL (0.2-1.3); BLOOD UREA NITROGEN 18 mg/dL (7-20); CALCIUM 9.3 mg/dL (8.4-10.2); CARBON DIOXIDE 31 mmol/L (22-30); CHLORIDE 102 mmol/L (98-107); GLUCOSE 169 mg/dL (75-110); SODIUM 141.1 mmol/L (137-145); TOTAL PROTEIN 5.8 g/dL (6.3-8.2)
[2018-01-09 06:45] LABS: LIPASE 2276.5 U/L (23-300)
[2018-01-09] MEDS: PROMETHAZINE HCL INJ 25 MG/1 ML VIAL IV PRN (08:52)
[2018-01-09] MEDS: GABAPENTIN 400 MG CAPSULE PO SCH ×2 (10:20→14:10)
[2018-01-09] MEDS: CITALOPRAM HYDROBROMIDE 20 MG TABLET PO SCH (10:20)
[2018-01-09] MEDS: LISINOPRIL 10 MG TABLET PO SCH (10:21)
[2018-01-09] MEDS: INSULIN GLARGINE,HUM.REC.ANLOG 300 UNIT/3 ML INSULN.PEN SUBCUT SCH (10:24)
[2018-01-09] MEDS: ENOXAPARIN SODIUM INJ 40 MG/0.4 ML DISP.SYRIN SUBCUT SCH (10:25)
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
[2018-01-09 15:47] VITALS: BP 121/57
== END 2018-01-09 16:52 | disposition home or self-care (01) | DRG 439 ==
LOC: ER 20:00 → EH 23:55 → 3W 01-03 03:08
PROVIDERS: ADMIT Internal Medicine; ATTEND Internal Medicine
DX: K85.20 Alcohol induced acute pancreatitis without necrosis or infection (principal); R45.851 Suicidal ideations; E11.65 Type 2 diabetes mellitus with hyperglycemia; F32.9 Major depressive disorder, single episode, unspecified; K21.9 Gastro-esophageal reflux disease without esophagitis; F43.21 Adjustment disorder with depressed mood; E87.6 Hypokalemia; E11.40 Type 2 diabetes mellitus with diabetic neuropathy, unspecified; I10 Essential (primary) hypertension; E78.5 Hyperlipidemia, unspecified; F10.10 Alcohol abuse, uncomplicated; F17.210 Nicotine dependence, cigarettes, uncomplicated; Y90.9 Presence of alcohol in blood, level not specified; Z59.0 Homelessness; Z79.4 Long term (current) use of insulin; Z91.14 Patient's other noncompliance with medication regimen
CPT/HCPCS: 36415; 76700; 80048; 80053; 80061; 80074; 81001; 82150; 82803; 82962; 83036; 83690; 83735; 84443; 84484; 85025; 85027; 93005; 93010; 93976; 96374; 99285; J0743; J1170; J1650; J1815; J2060; J2270; J2550; J3010; J3480; J7030; S0119; S0164

== ENCOUNTER 2018-07-13 11:56 | Inpatient (IN) | payer MEDICAID ==
[2018-07-13] MEDS ORDERED: ONDANSETRON HCL INJ/PF 4 MG/2 ML SDV IV ONE (12:12)
--- NOTE | 2018-07-13 12:13 | ER Document Report ---
ED General - General Chief Complaint: High Blood Sugar Stated Complaint: BLOOD SUGAR ISSUES Time Seen by Provider: 07/13/18 12:04 Mode of Arrival: Medic Information source: Patient, Emergency Med Personnel, [facility] Records Notes: 58-year-old male with type 1 diabetes, neuropathy, renal insufficiency, rheumatoid arthritis, anxiety, remote history of pancreatitis presents via EMS with complaint of nausea, vomiting and elevated blood sugar. Patient states that on his way to work he began vomiting. He states this continued while at work which prompted a coworker to call EMS. Patient states that his sugars have been fine up until 5 days ago when he noticed them to be elevated despite taking his NovoLog and Lantus as scheduled. Patient does report a recent upper respiratory infection which included nasal congestion, cough that has now resolved. He also reports 1 day of diarrhea several days ago which has also resolved. Patient no longer uses alcohol. He states his previous episodes of pancreatitis were due to alcohol use. Patient has a surgical history of cholecystectomy. Patient is a current every day smoker. He states that his father at the age of 51 from a heart attack. Patient also reports a sharp chest pain that lasted 2 minutes after vomiting. TRAVEL OUTSIDE OF THE [place] IN LAST 30 DAYS: No - HPI Onset: This morning Onset/Duration: Gradual, Persistent Quality of pain: Sharp Severity: Mild Associated symptoms: Chest pain, Diarrhea, Nausea, Vomiting Exacerbated by: Denies Relieved by: Denies Similar symptoms previously: Yes Recently seen / treated by doctor: No - Related Data Allergies/Adverse Reactions: Penicillins Allergy (Severe, Verified 07/13/18 12:10) Swelling of Throat Past Medical History - General Information source: Patient, [facility] Records - Social History Smoking Status: Current Every Day Smoker Cigarette use (# per day): Yes - 15 Chew tobacco use (# tins/day): No Smoking Education Provided: Yes - Smoking cessation counseling was provided for 4 minutes at the bedside Frequency of alcohol use: None Drug Abuse: None Lives with: Family Family History: CAD Patient has suicidal ideation: No Patient has homicidal ideation: No Endocrine Medical History: Reports: Hx Diabetes Mellitus Type 1, Hx Diabetes Mellitus Type 2 Renal/ Medical History: Denies: Hx Peritoneal Dialysis GI Medical History: Reports: Hx Gastroesophageal Reflux Disease, Hx Ulcer Musculoskeletal Medical History: Reports Hx Arthritis - RA Psychiatric Medical History: Reports: Hx Depression - anxiety Past Surgical History: Reports: Hx Cholecystectomy, Hx Orthopedic Surgery - right rotator, right hand carpel sheeba, left knee - Immunizations Hx Diphtheria, Pertussis, Tetanus Vaccination: Yes Hx Pneumococcal Vaccination: 04/23/14 Review of Systems - Review of Systems Notes: REVIEW OF SYSTEMS: CONSTITUTIONAL : Denies fever, chills, or sweats. Denies recent illness. Denies weight loss, recent hospitalizations. EENT: Denies visual changes, eye pain. Denies sore throat, oral lesions, difficulty swallowing. CARDIOVASCULAR: Denies palpitations. Denies lower extremity edema. RESPIRATORY: Denies cough. Denies shortness of breath, wheezing. GASTROINTESTINAL: Denies abdominal pain or distention. Denies blood in vomitus, stools, or per rectum. Denies black, tarry stools. Denies constipation. GENITOURINARY: Denies difficulty urinating, painful urination, frequency, blood in urine, testicular pain or penile discharge. MUSCULOSKELETAL: Denies back or neck pain or stiffness. Denies joint pain or swelling. SKIN: Denies rash, lesions or sores. HEMATOLOGIC : Denies easy bruising or bleeding. LYMPHATIC: Denies swollen glands. NEUROLOGICAL: Denies confusion or altered mental status. Denies loss of consciousness. Denies dizziness or lightheadedness. Denies headache. Denies weakness or paralysis. Denies problems difficulty with ambulation, slurred speech. Denies sensory loss, numbness, or tingling. Denies seizures. PSYCHIATRIC: Denies anxiety or stress. Denies depression, suicidal ideation, or Physical Exam - Vital signs Vitals: Temp 97.7 F 07/13/18 12:12 - Notes Notes: PHYSICAL EXAMINATION: GENERAL: Well-appearing, well-nourished and in no acute distress. HEAD: Atraumatic, normocephalic. EYES: Pupils equal round and reactive to light, extraocular movements intact, sclera anicteric, conjunctiva are normal. ENT: Nares patent, oropharynx clear without exudates. Moist mucous membranes. NECK: Normal range of motion, supple without lymphadenopathy LUNGS: Breath sounds clear to auscultation bilaterally and equal. No wheezes rales or rhonchi. HEART: Regular rate and rhythm without murmurs ABDOMEN: Soft, nontender, nondistended abdomen. No guarding, no rebound. No masses appreciated. Musculoskeletal: Normal range of motion, no pitting or edema. No cyanosis. NEUROLOGICAL: Cranial nerves grossly intact. Normal speech, normal gait. Normal sensory, motor exams PSYCH: Normal mood, normal affect. SKIN: Warm, Dry, normal turgor, no rashes or lesions noted. Course - Re-evaluation Re-evalutation: 07/13/18 18:53 Laboratory 07/13/18 07/13/18 07/13/18 12:04 12:50 13:51 WBC 8.9 RBC 4.33 L Hgb 13.5 Hct 40.5 MCV 93 MCH 31.1 MCHC 33.3 RDW 14.5 H Plt Count 285 Seg Neutrophils % 78.4 H Lymphocytes % 14.6 Monocytes % 5.1 Eosinophils % 0.7 Basophils % 1.2 Absolute Neutrophils 7.0 Absolute Lymphocytes 1.3 Absolute Monocytes 0.5 Absolute Eosinophils 0.1 Absolute Basophils 0.1 VBG pH VBG pCO2 VBG HCO3 VBG Base Excess Sodium Potassium Chloride Carbon Dioxide Anion Gap BUN Creatinine Est GFR ( Amer) Est GFR (Non-Af Amer) Glucose POC Glucose > 550 H* Calcium Total Bilirubin Direct Bilirubin Neonat Total Bilirubin Neonat Direct Bilirubin Neonat Indirect Bili AST ALT Alkaline Phosphatase Troponin I Total Protein Albumin Lipase Urine Color STRAW Urine Appearance CLEAR Urine pH 5.0 Ur Specific Temperance 1.024 Urine Protein NEGATIVE Urine Glucose (UA) >=500 H Urine Ketones 80 H Urine Blood NEGATIVE Urine Nitrite NEGATIVE Urine Bilirubin NEGATIVE Urine Urobilinogen NEGATIVE Ur Leukocyte Esterase NEGATIVE Urine WBC (Auto) 0 Urine RBC (Auto) 0 Squamous Epi Cells Auto <1 Urine Ascorbic Acid NEGATIVE Serum Alcohol 07/13/18 07/13/18 07/13/18 13:51 13:51 13:51 WBC RBC Hgb Hct MCV MCH MCHC RDW Plt Count Seg Neutrophils % Lymphocytes % Monocytes % Eosinophils % Basophils % Absolute Neutrophils Absolute Lymphocytes Absolute Monocytes Absolute Eosinophils Absolute Basophils VBG pH 7.25 L VBG pCO2 39.6 VBG HCO3 17.0 L VBG Base Excess -9.6 Sodium 134.7 L Potassium 5.2 H Chloride 101 Carbon Dioxide 15 L Anion Gap 19 BUN 28 H Creatinine 1.19 Est GFR ( Amer) > 60 Est GFR (Non-Af Amer) > 60 Glucose 582 H* POC Glucose Calcium 9.7 Total Bilirubin 0.7 Direct Bilirubin 0.5 H Neonat Total Bilirubin Not Reportable Neonat Direct Bilirubin Not Reportable Neonat Indirect Bili Not Reportable AST 42 ALT 66 Alkaline Phosphatase 116 Troponin I < 0.012 Total Protein 6.6 Albumin 4.0 Lipase 83.1 Urine Color Urine Appearance Urine pH Ur Specific Temperance Urine Protein Urine Glucose (UA) Urine Ketones Urine Blood Urine Nitrite Urine Bilirubin Urine Urobilinogen Ur Leukocyte Esterase Urine WBC (Auto) Urine RBC (Auto) Squamous Epi Cells Auto Urine Ascorbic Acid Serum Alcohol 07/13/18 07/13/18 13:51 15:30 WBC RBC Hgb Hct MCV MCH MCHC RDW Plt Count Seg Neutrophils % Lymphocytes % Monocytes % Eosinophils % Basophils % Absolute Neutrophils Absolute Lymphocytes Absolute Monocytes Absolute Eosinophils Absolute Basophils VBG pH VBG pCO2 VBG HCO3 VBG Base Excess Sodium Potassium Chloride Carbon Dioxide Anion Gap BUN Creatinine Est GFR ( Amer) Est GFR (Non-Af Amer) Glucose POC Glucose Calcium Total Bilirubin Direct Bilirubin Neonat Total Bilirubin Neonat Direct Bilirubin Neonat Indirect Bili AST ALT Alkaline Phosphatase Troponin I < 0.012 Total Protein Albumin Lipase Urine Color Urine Appearance Urine pH Ur Specific Temperance Urine Protein Urine Glucose (UA) Urine Ketones Urine Blood Urine Nitrite Urine Bilirubin Urine Urobilinogen Ur Leukocyte Esterase Urine WBC (Auto) Urine RBC (Auto) Squamous Epi Cells Auto Urine Ascorbic Acid Serum Alcohol < 10 Chest X-Ray 07/13/18 12:05 IMPRESSION: NO ACUTE RADIOGRAPHIC FINDING IN THE CHEST. Temp Pulse Resp BP Pulse Ox 98.0 F 101 H 19 159/72 H 100 07/13/18 18:07 07/13/18 18:07 07/13/18 18:07 07/13/18 18:07 07/13/18 18:07 58-year-old male with type 1 diabetes presents with complaint of nausea, vomiting, chest pain that started just prior to arrival. Patient reports compliance with his NovoLog and Lantus. He does report a recent upper respiratory infection and diarrhea that has resolved. Upon arrival patient is tachycardic but afebrile. He does not appear toxic but he does appear dehydrated. Patient found to have a glucose of 580, bicarb is 15. He has ketones in the urine and a VBG with a pH of 7.2. Fluid resuscitation initiated. Troponin negative. Patient admitted to the hospitalist for DKA. - Vital Signs Vital signs: Temp Pulse Resp BP Pulse Ox 98.0 F 101 H 19 159/72 H 100 07/13/18 18:07 07/13/18 18:07 07/13/18 18:07 07/13/18 18:07 07/13/18 18:07 - Laboratory Result Diagrams: 07/13/18 13:51 07/13/18 13:51 Laboratory results interpreted by me: 07/13/18 07/13/18 07/13/18 12:04 12:50 13:51 RBC 4.33 L RDW 14.5 H Seg Neutrophils % 78.4 H VBG pH VBG HCO3 Sodium Potassium Carbon Dioxide BUN Glucose POC Glucose > 550 H* Direct Bilirubin Urine Glucose (UA) >=500 H Urine Ketones 80 H 07/13/18 07/13/18 13:51 13:51 RBC RDW Seg Neutrophils % VBG pH 7.25 L VBG HCO3 17.0 L Sodium 134.7 L Potassium 5.2 H Carbon Dioxide 15 L BUN 28 H Glucose 582 H* POC Glucose Direct Bilirubin 0.5 H Urine Glucose (UA) Urine Ketones - Diagnostic Test Radiology reviewed: Image reviewed, Reports reviewed - EKG Interpretation by Me EKG shows normal: Sinus rhythm Rate: Normal Rhythm: NSR When compared to previous EKG there are: No significant change Discharge - Discharge Clinical Impression: Metabolic acidosis DKA, type 1 Qualifiers: Diabetes mellitus complication detail: without coma Qualified Code(s): E10.10 - Type 1 diabetes mellitus with ketoacidosis without coma Chest pain Qualifiers: Chest pain type: unspecified Qualified Code(s): R07.9 - Chest pain, unspecified Nausea & vomiting Qualifiers: Vomiting type: unspecified Vomiting Intractability: non-intractable Qualified Code(s): R11.2 - Nausea with vomiting, unspecified Condition: Good Disposition: ADMITTED INPATIENT Admitting Provider: Hospitalist Unit Admitted: Telemetry
[2018-07-13] MEDS: NORMAL SALINE 1000 ML 1,000 ML IV PRN ×3 (12:17→18:17)
[2018-07-13 13:05] LABS: APPEARANCE,URINE CLEAR; BILIRUBIN,URINE NEGATIVE (NEGATIVE); COLOR,URINE STRAW; GLUCOSE, URINE >=500 mg/dL (NEGATIVE); KETONES,URINE 80 mg/dL (NEGATIVE); LEUKOCYTE ESTERASE,URINE NEGATIVE (NEGATIVE); NITRITE,URINE NEGATIVE (NEGATIVE); PROTEIN,URINE NEGATIVE (NEGATIVE); URINE SPECIFIC GRAVITY 1.024; UROBILINOGEN,URINE NEGATIVE mg/dL (<2.0)
--- NOTE | 2018-07-13 13:05 | RADIOLOGY REPORT (SQ) ---
EXAM DESCRIPTION: CHEST 2 VIEWS COMPLETED DATE/TIME: 07/13/2018 12:56 pm REASON FOR STUDY: sob COMPARISON: CHEST FILMS 04/17/2015, 11/26/2014 EXAM PARAMETERS: NUMBER OF VIEWS: two views TECHNIQUE: Digital Frontal and Lateral radiographic views of the chest acquired. RADIATION DOSE: NA LIMITATIONS: none FINDINGS: LUNGS AND PLEURA: No opacities, masses or pneumothorax. No pleural effusion. MEDIASTINUM AND HILAR STRUCTURES: No masses or contour abnormalities. HEART AND VASCULAR STRUCTURES: Heart normal size. No evidence for failure. BONES: No acute findings. HARDWARE: None in the chest. OTHER: No other significant finding. IMPRESSION: NO ACUTE RADIOGRAPHIC FINDING IN THE CHEST. TECHNICAL DOCUMENTATION: JOB ID: [id number] [employer]- All Rights Reserved Reading location - IP/workstation name: [email or web address]
--- NOTE | 2018-07-13 13:09 | EKG REPORT ---
SEVERITY:- NORMAL ECG - SINUS RHYTHM : Confirmed by: Dimas Rivera MD 13-Jul-2018 13:08:52
[2018-07-13 14:09] LABS: ABSOLUTE BASOPHILS # (AUTO) 0.1 10^3/uL (0.0-0.2); ABSOLUTE EOSINOPHILS # (AUTO) 0.1 10^3/uL (0.0-0.6); ABSOLUTE LYMPHOCYTES (AUTO) 1.3 10^3/uL (0.5-4.7); ABSOLUTE MONOCYTES (AUTO) 0.5 10^3/uL (0.1-1.4); BASOPHILS % (AUTO) 1.2 % (0-2); EOSINOPHILS % (AUTO) 0.7 % (0-6); HEMATOCRIT 40.5 % (37.9-51.0); HEMOGLOBIN 13.5 g/dL (13.5-17.0); LYMPHOCYTES % (AUTO) 14.6 % (13-45); MEAN CORPUSCULAR HEMOGLOBIN 31.1 pg (27.0-33.4); MEAN CORPUSCULAR HGB CONC 33.3 g/dL (32.0-36.0); MEAN CORPUSCULAR VOLUME 93 fl (80-97); MONOCYTES % (AUTO) 5.1 % (3-13); PLATELET COUNT 285 10^3/uL (150-450); RED BLOOD COUNT 4.33 10^6/uL (4.35-5.55); RED CELL DISTRIBUTION WIDTH 14.5 % (11.5-14.0); SEGMENTED NEUTROPHILS % (AUTO) 78.4 % (42-78); TOTAL CELLS COUNTED % (AUTO) 100 %; VENOUS BLOOD BASE EXCESS -9.6 mmol/L; VENOUS BLOOD PCO2 39.6 mmHg (35-63); VENOUS BLOOD PH 7.25 (7.30-7.42); WHITE BLOOD COUNT 8.9 10^3/uL (4.0-10.5)
[2018-07-13 14:25] LABS: ALANINE AMINOTRANSFERASE 66 U/L (21-72); ALKALINE PHOSPHATASE 116 U/L (38-126); ANION GAP 19 (5-19); ASPARTATE AMINO TRANSFERASE 42 U/L (17-59); BILIRUBIN,DIRECT 0.5 mg/dL (0.0-0.4); BILIRUBIN,TOTAL 0.7 mg/dL (0.2-1.3); BLOOD UREA NITROGEN 28 mg/dL (7-20); CALCIUM 9.7 mg/dL (8.4-10.2); CARBON DIOXIDE 15 mmol/L (22-30); CHLORIDE 101 mmol/L (98-107); LIPASE 83.1 U/L (23-300); POTASSIUM 5.2 mmol/L (3.6-5.0); SODIUM 134.7 mmol/L (137-145); TOTAL PROTEIN 6.6 g/dL (6.3-8.2)
[2018-07-13 14:37] LABS: GLUCOSE 582 mg/dL (75-110)
[2018-07-13] MEDS ORDERED: NORMAL SALINE 1000 ML 1,000 ML IV ONE (15:14)
[2018-07-13] MEDS ORDERED: DIPHENHYDRAMINE HCL 50 MG/ML VIAL IV ONE (15:26)
[2018-07-13] MEDS ORDERED: METOCLOPRAMIDE HCL INJ/PF 10 MG/2 ML SDV IV ONE (15:26)
[2018-07-13] MEDS ORDERED: INSULIN REG, HUMAN 100 UNIT/ML 3 ML VIAL (PYX) IV ONE (15:58)
[2018-07-13] MEDS ORDERED: IPRATROPIUM/ALBUTEROL 0.5-2.5 MG/3 ML AMPUL NEB PRN (16:07)
[2018-07-13] MEDS ORDERED: DEXTROSE 50%-WATER 25 GM/50 ML DISP.SYRIN IV PRN ×2 (16:07)
[2018-07-13] MEDS ORDERED: DEXTROSE 40% GEL 15 GM TUBE PO PRN ×2 (16:07)
[2018-07-13] MEDS ORDERED: ACETAMINOPHEN 325 MG TABLET PO PRN (16:07)
[2018-07-13] MEDS ORDERED: GLUCAGON,HUMAN RECOMB 1 MG INJ IM PRN (16:07)
[2018-07-13] MEDS ORDERED: PROMETHAZINE HCL INJ 25 MG/1 ML VIAL IV PRN (17:31)
[2018-07-13] MEDS ORDERED: ONDANSETRON HCL INJ/PF 4 MG/2 ML SDV IV PRN (17:31)
--- NOTE | 2018-07-13 17:40 | PDOC H&P ---
History of Present Illness Admission Date/PCP: 07/13/18 16:01 SHASHANK BAILEY Patient complains of: nausea and vomiting History of Present Illness: JACQUELIN MARTIN is a 58 year old male with a PMH significant for IDDM, RA, neuropathy, and GERD who presented to the ED today with a complaint of N/V x3 today with uncontrollable blood glucose. He denies having missed any doses of insulin. He does report having had an URI approximately 2 weeks ago, but otherwise no proceeding/precipitating events. He also reports intermittent chest discomfort, without associated symptoms, that began shortly after vomiting and resolved spontaneously a few minutes later. Evaluation in the emergency department revealed a benign CXR, EKG demonstrating NSR, normal troponin, and laboratory evaluation notable only for hyperkalemia 5.2, Bicarb 15, closed anion gap 19, and glucose of 582. He is referred to the hospital service for admission and management of hyperglycemia with nausea/vomiting. Past Medical History Medical History: None Cardiac Medical History: Reports: None Pulmonary Medical History: Reports: None EENT Medical History: Reports: None Neurological Medical History: Reports: None Endocrine Medical History: Reports: Diabetes Mellitus Type 1 Renal/ Medical History: Reports: None Malignancy Medical History: Reports: None GI Medical History: Reports: Gastroesophageal Reflux Disease Musculoskeltal Medical History: Reports: Arthritis - RA Skin Medical History: Reports: None Psychiatric Medical History: Reports: Depression - anxiety, Tobacco Dependency Traumatic Medical History: Reports: None Hematology: Reports: None Infectious Medical History: Reports: None Past Surgical History Past Surgical History: Reports: Cholecystectomy, Orthopedic Surgery - right rotator, right hand carpel sheeba, left knee Social History Information Source: Patient Lives with: Family Smoking Status: Current Every Day Smoker Cigarettes Packs Per Day: 1 Frequency of Alcohol Use: Rare Hx Recreational Drug Use: Yes Drugs: Marijuana Hx Prescription Drug Abuse: No - Advance Directive Resuscitation Status: Do Not Resuscitate Family History Family History: CAD Parental Family History Reviewed: Yes Children Family History Reviewed: Yes Sibling(s) Family History Reviewed.: Yes Medication/Allergy Home Medications: Pantoprazole Sodium [Protonix] 40 mg PO DAILY 01/03/15 Insulin Aspart [Novolog Insulin (Aspart) 100 unit/mL] 15 unit SUBCUT TID 01/03/18 Insulin Glargine,Hum.rec.anlog [Lantus Insulin 100 Unit/1 ml 10 ml] 30 units SHOOK BCUT DAILY 01/03/18 Allergies/Adverse Reactions: Penicillins Allergy (Severe, Verified 07/13/18 12:10) Swelling of Throat Review of Systems Constitutional: PRESENT: fatigue. ABSENT: chills, fever(s), headache(s), weight gain, weight loss Eyes: ABSENT: visual disturbances Ears: ABSENT: hearing changes Cardiovascular: PRESENT: chest pain - Post emesis. ABSENT: dyspnea on exertion, edema, orthropnea, palpitations Respiratory: ABSENT: cough, hemoptysis Gastrointestinal: PRESENT: nausea, vomiting. ABSENT: abdominal pain, constipation, diarrhea, hematemesis, hematochezia Genitourinary: ABSENT: dysuria, hematuria Musculoskeletal: ABSENT: joint swelling Integumentary: ABSENT: rash, wounds Neurological: ABSENT: abnormal gait, abnormal speech, confusion, dizziness, focal weakness, syncope Psychiatric: ABSENT: anxiety, depression, homidical ideation, suicidal ideation Endocrine: ABSENT: cold intolerance, heat intolerance, polydipsia, polyuria Hematologic/Lymphatic: ABSENT: easy bleeding, easy bruising Physical Exam Vital Signs: Temp Pulse Resp BP Pulse Ox 97.7 F 25 H 129/52 H 100 07/13/18 12:12 07/13/18 12:16 07/13/18 12:16 07/13/18 12:16 Intake & Output 07/12/18 07/13/18 07/14/18 06:59 06:59 06:59 Intake Total 2000 Output Total 400 Balance 1600 Weight 72.575 kg General appearance: PRESENT: no acute distress, cooperative, disheveled, well- developed, well-nourished Head exam: PRESENT: atraumatic, normocephalic Eye exam: PRESENT: conjunctiva pink, EOMI, PERRLA. ABSENT: scleral icterus Ear exam: PRESENT: normal external ear exam Mouth exam: PRESENT: moist, tongue midline Neck exam: ABSENT: carotid bruit, JVD, lymphadenopathy, thyromegaly Respiratory exam: PRESENT: clear to auscultation sanjiv, symmetrical, unlabored. ABSENT: rales, rhonchi, wheezes Cardiovascular exam: PRESENT: RRR, +S1, +S2. ABSENT: diastolic murmur, rubs, systolic murmur Pulses: PRESENT: normal dorsalis pedis pul Vascular exam: PRESENT: normal capillary refill GI/Abdominal exam: PRESENT: normal bowel sounds, soft. ABSENT: distended, guar ding, mass, organolmegaly, rebound, tenderness Rectal exam: PRESENT: deferred Extremities exam: PRESENT: full ROM. ABSENT: calf tenderness, clubbing, pedal edema Neurological exam: PRESENT: alert, awake, oriented to person, oriented to place, oriented to time, oriented to situation, CN II-XII grossly intact. ABSENT: motor sensory deficit Psychiatric exam: PRESENT: appropriate affect, normal mood. ABSENT: homicidal ideation, suicidal ideation Skin exam: PRESENT: dry, intact, warm. ABSENT: cyanosis, rash Results Laboratory Results: 07/13/18 13:51 07/13/18 13:51 07/13/18 07/13/18 07/13/18 12:50 13:51 13:51 WBC 8.9 RBC 4.33 L Hgb 13.5 Hct 40.5 MCV 93 MCH 31.1 MCHC 33.3 RDW 14.5 H Plt Count 285 Seg Neutrophils % 78.4 H Lymphocytes % 14.6 Monocytes % 5.1 Eosinophils % 0.7 Basophils % 1.2 Absolute Neutrophils 7.0 Absolute Lymphocytes 1.3 Absolute Monocytes 0.5 Absolute Eosinophils 0.1 Absolute Basophils 0.1 VBG pH VBG pCO2 VBG HCO3 VBG Base Excess Sodium 134.7 L Potassium 5.2 H Chloride 101 Carbon Dioxide 15 L Anion Gap 19 BUN 28 H Creatinine 1.19 Est GFR ( Amer) > 60 Est GFR (Non-Af Amer) > 60 Glucose 582 H* Calcium 9.7 Total Bilirubin 0.7 AST 42 ALT 66 Alkaline Phosphatase 116 Total Protein 6.6 Albumin 4.0 Lipase 83.1 Urine Color STRAW Urine Appearance CLEAR Urine pH 5.0 Ur Specific Pease 1.024 Urine Protein NEGATIVE Urine Glucose (UA) >=500 H Urine Ketones 80 H Urine Blood NEGATIVE Urine Nitrite NEGATIVE Ur Leukocyte Esterase NEGATIVE Urine WBC (Auto) 0 Urine RBC (Auto) 0 07/13/18 13:51 WBC RBC Hgb Hct MCV MCH MCHC RDW Plt Count Seg Neutrophils % Lymphocytes % Monocytes % Eosinophils % Basophils % Absolute Neutrophils Absolute Lymphocytes Absolute Monocytes Absolute Eosinophils Absolute Basophils VBG pH 7.25 L VBG pCO2 39.6 VBG HCO3 17.0 L VBG Base Excess -9.6 Sodium Potassium Chloride Carbon Dioxide Anion Gap BUN Creatinine Est GFR ( Amer) Est GFR (Non-Af Amer) Glucose Calcium Total Bilirubin AST ALT Alkaline Phosphatase Total Protein Albumin Lipase Urine Color Urine Appearance Urine pH Ur Specific Pease Urine Protein Urine Glucose (UA) Urine Ketones Urine Blood Urine Nitrite Ur Leukocyte Esterase Urine WBC (Auto) Urine RBC (Auto) 07/13/18 07/13/18 13:51 15:30 Troponin I < 0.012 < 0.012 Impressions: Chest X-Ray 07/13/18 12:05 IMPRESSION: NO ACUTE RADIOGRAPHIC FINDING IN THE CHEST. Assessment & Plan - Diagnosis (1) Hyperglycemia Is this a current diagnosis for this admission?: Yes Plan: The patient is admitted with 5 days of progressively worsening blood sugars that he has not been able to control at home with his home dose insulin. He does endorse URI symptoms approximately 1 week ago but otherwise denies precipitating factors. He reports good compliance with his insulin regiment. He does have a history of EtOH abuse; will obtain serum alcohol level. He has already received 2 L NS bolus; will continue IV maintenance fluids. Humulin 10 units IV now. Resume the patient's home medication regiment of Lantus 30 units nightly. He is placed on a clear liquid, consistent carb, diet. Accu-Cheks before meals and at bedtime with Humalog for sliding scale coverage. (2) Chest pain Qualifiers: Chest pain type: unspecified Qualified Code(s): R07.9 - Chest pain, unspecified Is this a current diagnosis for this admission?: Yes Plan: Patient reported sharp, intermittent, spontaneously resolving chest pain following emesis earlier today. Chest x-ray is benign. EKG demonstrated normal sinus rhythm. Troponins are negative x2. Low suspicion for cardiac event; likely related to esophageal spasm following vomiting episode. However, as the patient has multiple risk factors, will continue to trend troponins and monitor on continuous cardiac telemetry. We will assess lipid panel with a.m. lab work. Daily aspirin. (3) Nausea & vomiting Qualifiers: Vomiting type: unspecified Vomiting Intractability: non-intractable Qualified Code(s): R11.2 - Nausea with vomiting, unspecified Is this a current diagnosis for this admission?: Yes Plan: Gastroenteritis versus hyperglycemia. He is already received a 2 L normal saline bolus by the emergency department provider. We will continue aggressive IV fluids. Antiemetics as needed. Clear liquid diet. (4) Gastroesophageal reflux disease Is this a current diagnosis for this admission?: Yes Plan: Continue PPI (5) Tobacco dependence Is this a current diagnosis for this admission?: Yes Plan: Smoking cessation is encouraged; nicotine or placement therapies are provided.
[2018-07-13] MEDS: INSULIN LISPRO 100 UNIT/ML 3 ML VIAL SUBCUT PRN ×2 (18:25→21:55)
[2018-07-13] MEDS: NICOTINE 21 MG/24 HR PATCH.TD24 TD SCH (19:08)
[2018-07-13 19:13] LABS: ANION GAP 19 (5-19); BLOOD UREA NITROGEN 30 mg/dL (7-20); CARBON DIOXIDE 13 mmol/L (22-30); CHLORIDE 105 mmol/L (98-107); POTASSIUM 4.8 mmol/L (3.6-5.0); SODIUM 136.8 mmol/L (137-145)
[2018-07-13 19:27] LABS: GLUCOSE 477 mg/dL (75-110)
[2018-07-13] MEDS: HEPARIN SOD (PORCINE) 5,000 UNIT/ML 1 ML SYRINGE SUBCUT SCH (21:56)
[2018-07-13] MEDS ORDERED: INSULIN GLARGINE,HUM.REC.ANLOG 300 UNIT/3 ML INSULN.PEN SUBCUT SCH (22:00)
[2018-07-14] MEDS: NORMAL SALINE 1000 ML 1,000 ML IV PRN (01:55)
[2018-07-14] MEDS: LANSOPRAZOLE 30 MG TAB.RAP.DR PO SCH (05:15)
[2018-07-14] MEDS: HEPARIN SOD (PORCINE) 5,000 UNIT/ML 1 ML SYRINGE SUBCUT SCH ×3 (05:15→21:34)
[2018-07-14 05:25] LABS: HEMATOCRIT 33.1 % (37.9-51.0); MEAN CORPUSCULAR HGB CONC 34.1 g/dL (32.0-36.0); MEAN CORPUSCULAR VOLUME 91 fl (80-97); PLATELET COUNT 284 10^3/uL (150-450); RED BLOOD COUNT 3.64 10^6/uL (4.35-5.55); RED CELL DISTRIBUTION WIDTH 13.7 % (11.5-14.0); WHITE BLOOD COUNT 11.9 10^3/uL (4.0-10.5)
[2018-07-14 05:32] LABS: HEMOGLOBIN 11.3 g/dL (13.5-17.0)
[2018-07-14 05:41] LABS: ANION GAP 5 (5-19); BLOOD UREA NITROGEN 21 mg/dL (7-20); CALCIUM 8.7 mg/dL (8.4-10.2); CARBON DIOXIDE 22 mmol/L (22-30); CHLORIDE 110 mmol/L (98-107); CHOLESTEROL 181.06 mg/dL (0-200); GLUCOSE 87 mg/dL (75-110); SODIUM 136.7 mmol/L (137-145); TRIGLYCERIDES 91 mg/dL (<150)
[2018-07-14 05:52] LABS: DIRECT LDL 89 mg/dL (<100)
[2018-07-14] MEDS: NICOTINE 21 MG/24 HR PATCH.TD24 TD SCH (09:34)
[2018-07-14] MEDS: INSULIN LISPRO 100 UNIT/ML 3 ML VIAL SUBCUT PRN ×2 (11:06→16:57)
[2018-07-14] MEDS ORDERED: INSULIN ASPART 15 UNIT SUBCUT SCH (14:00)
[2018-07-14] MEDS ORDERED: INSULIN LISPRO 100 UNIT/ML 3 ML VIAL SUBCUT SCH ×2 (16:00→18:00)
[2018-07-14] MEDS: INSULIN LISPRO 100 UNIT/ML 3 ML VIAL SUBCUT SCH (16:57)
[2018-07-14] MEDS ORDERED: INSULIN GLARGINE,HUM.REC.ANLOG 300 UNIT/3 ML INSULN.PEN SUBCUT SCH (22:00)
[2018-07-15] MEDS: LANSOPRAZOLE 30 MG TAB.RAP.DR PO SCH (05:20)
[2018-07-15] MEDS: HEPARIN SOD (PORCINE) 5,000 UNIT/ML 1 ML SYRINGE SUBCUT SCH ×2 (05:21→13:23)
[2018-07-15] MEDS: INSULIN LISPRO 100 UNIT/ML 3 ML VIAL SUBCUT SCH ×2 (07:38→11:54)
--- NOTE | 2018-07-15 07:43 | PDOC PROGRESS REPORT ---
Subjective Progress Note for:: 07/14/18 Subjective:: JACQUELIN MARTIN is a 58 year old male with a PMH significant for IDDM, RA, neuropathy, and GERD who was admitted 07/13/2018 for uncontrolled hyperglycemia secondary to insulin-dependent diabetes mellitus resulting in nausea and vomiting. Patient was seen on morning rounds. He was feeling much better and was now tolerating a consistent carb diet with minimal nausea and no emesis. He denies fever, chills, headache, dizziness, chest pain, palpitation, dyspnea, orthopnea, cough, abdominal discomfort, polydipsia and polyuria. He is hopeful to be discharged home today, however understands that his blood glucose remains consistently above 300 and so additional insulin titration is required. He has no other questions or concerns at this time. Concerns per nursing. Reason For Visit: HYPERGLYCEMIA,CHEST PAIN Physical Exam Vital Signs: Temp Pulse Resp BP Pulse Ox 98.4 F 70 16 144/73 H 99 07/15/18 04:06 07/15/18 04:06 07/15/18 04:06 07/15/18 04:06 07/15/18 04:06 Intake & Output 07/14/18 07/15/18 07/16/18 06:59 06:59 06:59 Intake Total 5455 2590 Output Total 1475 Balance 3980 2590 Weight 52.5 kg 59.6 kg General appearance: PRESENT: no acute distress, well-developed, well-nourished Head exam: PRESENT: atraumatic, normocephalic Eye exam: PRESENT: conjunctiva pink, EOMI, PERRLA. ABSENT: scleral icterus Ear exam: PRESENT: normal external ear exam Mouth exam: PRESENT: moist, tongue midline Neck exam: ABSENT: carotid bruit, JVD, lymphadenopathy, thyromegaly Respiratory exam: PRESENT: clear to auscultation sanjiv. ABSENT: rales, rhonchi, wheezes Cardiovascular exam: PRESENT: RRR. ABSENT: diastolic murmur, rubs, systolic murmur Pulses: PRESENT: normal dorsalis pedis pul Vascular exam: PRESENT: normal capillary refill GI/Abdominal exam: PRESENT: normal bowel sounds, soft. ABSENT: distended, guarding, mass, organolmegaly, rebound, tenderness Rectal exam: PRESENT: deferred Extremities exam: PRESENT: full ROM. ABSENT: calf tenderness, clubbing, pedal edema Neurological exam: PRESENT: alert, awake, oriented to person, oriented to place, oriented to time, oriented to situation, CN II-XII grossly intact. ABSENT: motor sensory deficit Psychiatric exam: PRESENT: appropriate affect, normal mood. ABSENT: homicidal ideation, suicidal ideation Skin exam: PRESENT: dry, intact, warm. ABSENT: cyanosis, rash Results Laboratory Results: 07/14/18 04:40 07/14/18 04:40 07/13/18 07/13/18 07/13/18 13:51 15:30 22:05 Troponin I < 0.012 < 0.012 < 0.012 Impressions: Chest X-Ray 07/13/18 12:05 IMPRESSION: NO ACUTE RADIOGRAPHIC FINDING IN THE CHEST. Assessment & Plan - Diagnosis (1) Hyperglycemia Is this a current diagnosis for this admission?: Yes Plan: Improved; dish person hypoglycemia (61); now with bgl >300. Will continue IV maintenance fluids. Lantus decreased to 20 units nightly. His diet has been advanced to a consistent carb diet; therefore will resume his home Humalog regiment of 15 units with meals. Continue Accu-Cheks before meals and at bedtime with Humalog for sliding scale coverage. The special educator and production control planner are consulted. (2) Chest pain Qualifiers: Chest pain type: unspecified Qualified Code(s): R07.9 - Chest pain, unspecified Is this a current diagnosis for this admission?: Yes Plan: Resolved. Low suspicion for cardiac event; likely related to esophageal spasm following vomiting episode. Chest x-ray is benign. EKG demonstrated normal sinus rhythm. Troponins are negative x3. Lipid panel is acceptable. Daily aspirin. (3) Nausea & vomiting Qualifiers: Vomiting type: unspecified Vomiting Intractability: non-intractable Qualified Code(s): R11.2 - Nausea with vomiting, unspecified Is this a current diagnosis for this admission?: Yes Plan: Resovled; likely secondary to hyperglycemia. Antiemetics as needed. (4) Gastroesophageal reflux disease Is this a current diagnosis for this admission?: Yes Plan: Continue PPI (5) Tobacco dependence Is this a current diagnosis for this admission?: Yes Plan: Smoking cessation is encouraged; nicotine or placement therapies are provided. - Time Time Spent with patient: 15-24 minutes Medications reviewed and adjusted accordingly: Yes Anticipated discharge: Home Within: within 24 hours
[2018-07-15] MEDS: NICOTINE 21 MG/24 HR PATCH.TD24 TD SCH (09:39)
--- NOTE | 2018-07-15 13:31 | PDOC DISCHARGE SUMMARY ---
General - Admit/Disc Date/PCP Admission Date/Primary Care Provider: 07/13/18 16:01 SHASHANK BAILEY Discharge Date: 07/15/18 - Discharge Diagnosis (1) Hyperglycemia Is this a current diagnosis for this admission?: Yes Summary: Resolved. A1C 11.0% The patient was admitted to the medical floor and provided generous IV fluids. His home dose Lantus was decreased from 30 units to 20 units nightly due to fasting hypoglycemia of 61 requiring correction. The patient was initially placed on a clear liquid diet and was advanced to a consistent carb diet as his nausea abated. His home medication regiment of Humalog 15 units with meals and sliding scale coverage as needed was reinitiated . The patient was monitored for an additional 24 hours and noted to have adequately controlled blood glucose. At time of discharge, the patient was asymptomatic, with appropriate blood glucose, and hemodynamically stable. He was able to describe to me appropriate monitoring of blood glucose with in crease of Lantus every third day as necessary for fasting blood glucose greater than 200. He was also able to describe the techniques he uses with regard to managing his mealtime insulin; he appears to have excellent understanding of carb counting and use of sliding scale regimens. The patient was discharged home with self-care with prescriptions for Lantus and Humalog. He was advised to follow-up with his primary care provider within 1 week and to return to the emergency department as needed for any concerning symptoms. (2) Chest pain Is this a current diagnosis for this admission?: Yes Summary: Resolved. Low suspicion for cardiac event; likely related to esophageal spasm following vomiting episode. Chest x-ray is benign. EKG demonstrated normal sinus rhythm. Troponins are negative x3. Lipid panel is acceptable. The patient was started on daily aspirin and low-dose atorvastatin due to his underlying uncontrolled diabetes mellitus. (3) Nausea & vomiting Is this a current diagnosis for this admission?: Yes Summary: Resolved; secondary to hyperglycemia. (4) Gastroesophageal reflux disease Is this a current diagnosis for this admission?: Yes Summary: Recommend continuing daily PPI therapy. Patient is provided a prescription for Protonix at discharge. (5) Tobacco dependence Is this a current diagnosis for this admission?: Yes Summary: Smoking cessation is strongly encouraged. He is provided a prescription for NicoDerm patches at discharge. - Additional Information Resuscitation Status: Do Not Resuscitate Discharge Diet: Diabetic, Other (Comments) - Drink plenty of water Discharge Activity: Activity As Tolerated, Balance Activity w/Rest, Slowly Increase Activity Prescriptions: Aspirin [Ecotrin 81 mg EC Tablet] 81 mg PO DAILY #1 pkg Atorvastatin Calcium [Lipitor 10 mg Tablet] 10 mg PO QHS #30 tablet Insulin Glargine,Hum.rec.anlog [Lantus Insulin 100 Unit/mL] 20 unit SUBCUT QHS # 1 insuln.pen Insulin Lispro [Humalog Kwikpen U-100] 15 unit SQ AC #1 insuln.pen Nicotine [Nicoderm 21 mg/24 Hr Transderm Patch] 1 each TD DAILY #30 patch.td24 Pantoprazole Sodium [Protonix] 40 mg PO DAILY #30 tablet. Home Medications: Insulin Aspart [Novolog Insulin (Aspart) 100 unit/mL] 15 unit SUBCUT TID 01/03/18 Acetaminophen [Tylenol 325 mg Tablet] 650 mg PO Q4HP PRN tablet 07/14/18 Aspirin [Ecotrin 81 mg EC Tablet] 81 mg PO DAILY #1 pkg 07/14/18 Atorvastatin Calcium [Lipitor 10 mg Tablet] 10 mg PO QHS #30 tablet 07/14/18 Insulin Glargine,Hum.rec.anlog [Lantus Insulin 100 Unit/mL] 20 unit SUBCUT QHS #1 insuln.pen 07/14/18 Insulin Lispro [Humalog Kwikpen U-100] 15 unit SQ AC #1 insuln.pen 07/14/18 Nicotine [Nicoderm 21 mg/24 Hr Transderm Patch] 1 each TD DAILY #30 patch.td24 07/14/18 Pantoprazole Sodium [Protonix] 40 mg PO DAILY #30 tablet. 07/14/18 History of Present Illness History of Present Illness: JACQUELIN MARTIN is a 58 year old male with a PMH significant for IDDM, RA, neuropathy, and GERD who presented to the ED today with a complaint of N/V x3 today with uncontrollable blood glucose. He denies having missed any doses of insulin. He does report having had an URI approximately 2 weeks ago, but otherwise no proceeding/precipitating events. He also reports intermittent chest discomfort, without associated symptoms, that began shortly after vomiting and resolved spontaneously a few minutes later. Evaluation in the emergency department revealed a benign CXR, EKG demonstrating NSR, normal troponin, and laboratory evaluation notable only for hyperkalemia 5.2, Bicarb 15, closed anion gap 19, and glucose of 582. He is referred to the hospital service for admission and management of hyperglycemia with nausea/vomiting. Physical Exam Vital Signs: Temp Pulse Resp BP Pulse Ox 98.2 F 57 L 16 144/61 H 100 07/15/18 11:45 07/15/18 11:45 07/15/18 11:45 07/15/18 11:45 07/15/18 11:45 Intake & Output 07/14/18 07/15/18 07/16/18 06:59 06:59 06:59 Intake Total 5455 2590 Output Total 1475 Balance 3980 2590 Weight 52.5 kg 59.6 kg General appearance: PRESENT: no acute distress, cooperative, thin, well- developed, well-nourished Head exam: PRESENT: atraumatic, normocephalic Eye exam: PRESENT: conjunctiva pink, EOMI, PERRLA. ABSENT: scleral icterus Ear exam: PRESENT: normal external ear exam Mouth exam: PRESENT: moist, tongue midline Neck exam: ABSENT: carotid bruit, JVD, lymphadenopathy, thyromegaly Respiratory exam: PRESENT: clear to auscultation sanjiv, symmetrical, unlabored. ABSENT: rales, rhonchi, wheezes Cardiovascular exam: PRESENT: RRR. ABSENT: diastolic murmur, rubs, systolic murmur Pulses: PRESENT: normal dorsalis pedis pul Vascular exam: PRESENT: normal capillary refill GI/Abdominal exam: PRESENT: normal bowel sounds, soft. ABSENT: distended, guarding, mass, organolmegaly, rebound, tenderness Rectal exam: PRESENT: deferred Extremities exam: PRESENT: full ROM. ABSENT: calf tenderness, clubbing, pedal edema Neurological exam: PRESENT: alert, awake, oriented to person, oriented to place, oriented to time, oriented to situation, CN II-XII grossly intact. ABSENT: motor sensory deficit Psychiatric exam: PRESENT: appropriate affect, normal mood. ABSENT: homicidal ideation, suicidal ideation Skin exam: PRESENT: dry, intact, warm. ABSENT: cyanosis, rash Results Laboratory Results: 07/14/18 04:40 07/14/18 04:40 07/13/18 07/13/18 07/13/18 13:51 15:30 22:05 Troponin I < 0.012 < 0.012 < 0.012 Impressions: Chest X-Ray 07/13/18 12:05 IMPRESSION: NO ACUTE RADIOGRAPHIC FINDING IN THE CHEST. Qualifiers - * PATIENT BEING DISCHARGED WITH ANY OF THE FOLLOWING DIAGNOSIS: No Plan Discharge Plan: Discharged home with self-care. Follow-up with primary care provider within 1 week. Return to the emergency department as needed for concerning symptoms. Time Spent: Less than 30 Minutes
[2018-07-15 16:25] VITALS: BP 159/72
== END 2018-07-15 16:26 | disposition home or self-care (01) | DRG 639 ==
LOC: ER 11:56 → EH 16:01 → OBSVTOIN 16:07 → 5 17:59
PROVIDERS: ADMIT Internal Medicine; ATTEND Internal Medicine
PROC: 3E0F73Z Introduction of Anti-inflammatory into Respiratory Tract, Via Natural or Artificial Opening (ICD-10-PCS; principal; 2018-07-13)
DX: E10.65 Type 1 diabetes mellitus with hyperglycemia (principal); K21.9 Gastro-esophageal reflux disease without esophagitis; E10.40 Type 1 diabetes mellitus with diabetic neuropathy, unspecified; Z66 Do not resuscitate; M06.9 Rheumatoid arthritis, unspecified; F32.9 Major depressive disorder, single episode, unspecified; F41.9 Anxiety disorder, unspecified; F17.210 Nicotine dependence, cigarettes, uncomplicated; Z79.899 Other long term (current) drug therapy; Z79.4 Long term (current) use of insulin; Z90.49 Acquired absence of other specified parts of digestive tract; Z88.0 Allergy status to penicillin; Z82.49 Family history of ischemic heart disease and other diseases of the circulatory system
CPT/HCPCS: 36415; 71046; 80048; 80053; 80061; 80307; 81001; 82803; 82962; 83036; 83690; 84484; 85025; 85027; 93005; 93010; 94799; 96361; 96374; 96375; 99285; 99406; J1200; J1644; J1815; J2405; J2765; J3490; J7030

== ENCOUNTER 2018-09-27 19:53 | Emergency (ER) | payer MEDICAID ==
[2018-09-27] MEDS ORDERED: RINGERS SOLUTION,LACTATED 1,000 ML IV ONE (20:31)
--- NOTE | 2018-09-27 20:33 | ER Document Report ---
ED Medical Screen (RME) - General Chief Complaint: High Blood Sugar Stated Complaint: DIZZNESS,WEAK Time Seen by Provider: 09/27/18 20:24 Primary Care Provider: SHASHANK BAILEY MD [Primary Care Provider] - Follow up as needed Mode of Arrival: Ambulatory Information source: Patient Notes: This is a 58-year-old man with a history of diabetes (NovoLog 8-15 units 3 times daily, Lantus 30 mg nightly), diabetic neuropathy (used to be on Neurontin, stopped), GERD (Protonix), hypertension (no medicine) who presents to the emergency room with generalized weakness, dizziness, productive cough of green phlegm for the past week. Patient states that his glucose meter broke in the cold. He reports being homeless. His primary care physician is Dr. Bailey. TRAVEL OUTSIDE OF THE [place] IN LAST 30 DAYS: No - Related Data Allergies/Adverse Reactions: Penicillins Allergy (Severe, Verified 07/13/18 12:10) Swelling of Throat Past Medical History Endocrine Medical History: Reports: Hx Diabetes Mellitus Type 1, Hx Diabetes Mellitus Type 2 Renal/ Medical History: Denies: Hx Peritoneal Dialysis GI Medical History: Reports: Hx Gastroesophageal Reflux Disease, Hx Ulcer Musculoskeltal Medical History: Reports Hx Arthritis - RA Psychiatric Medical History: Reports: Hx Depression - anxiety Past Surgical History: Reports: Hx Cholecystectomy, Hx Orthopedic Surgery - right rotator, right hand carpel sheeba, left knee - Immunizations Hx Diphtheria, Pertussis, Tetanus Vaccination: Yes History of Influenza Vaccine for 04/2017 - 09/2017 Season: Yes Influenza Administration Date for 04/2017 - 09/2017 Season: 04/23/17 Physical Exam - Vital signs Vitals: Temp Pulse Resp BP Pulse Ox 98.8 F 97 18 174/85 H 97 09/27/18 20:17 09/27/18 20:17 09/27/18 20:17 09/27/18 20:17 09/27/18 20:17 Course - Vital Signs Vital signs: Temp Pulse Resp BP Pulse Ox 98.8 F 97 18 174/85 H 97 09/27/18 20:17 09/27/18 20:17 09/27/18 20:17 09/27/18 20:17 09/27/18 20:17 Doctor's Discharge - Discharge Referrals: SHASHANK BAILEY MD [Primary Care Provider] - Follow up as needed
--- NOTE | 2018-09-27 21:11 | RADIOLOGY REPORT (SQ) ---
EXAM DESCRIPTION: XR CHEST 2 VIEWS COMPLETED DATE/TME: 09/27/2018 20:32 CLINICAL HISTORY: 58 years, Male, cough COMPARISON: EXAM DESCRIPTION: CLINICAL HISTORY: cough COMPARISON: 04/17/2015 FINDINGS: Two views of the chest are submitted. Cardiac silhouette appears normal. No focal parenchymal or pleural disease. No acute bony abnormality. There is no significant pulmonary vascular engorgement. IMPRESSION: No evidence of acute cardiopulmonary disease. NUMBER OF VIEWS: TECHNIQUE: LIMITATIONS: None. FINDINGS: IMPRESSION: copyright 2010 [employer]- All Rights Reserved
[2018-09-27 21:17] LABS: APPEARANCE,URINE CLEAR; BILIRUBIN,URINE NEGATIVE (NEGATIVE); COLOR,URINE COLORLESS; GLUCOSE, URINE >=500 mg/dL (NEGATIVE); KETONES,URINE NEGATIVE (NEGATIVE); LEUKOCYTE ESTERASE,URINE NEGATIVE (NEGATIVE); NITRITE,URINE NEGATIVE (NEGATIVE); PROTEIN,URINE NEGATIVE (NEGATIVE); URINE SPECIFIC GRAVITY 1.023; UROBILINOGEN,URINE NEGATIVE mg/dL (<2.0)
[2018-09-27 21:22] LABS: ABSOLUTE BASOPHILS # (AUTO) 0.1 10^3/uL (0.0-0.2); ABSOLUTE EOSINOPHILS # (AUTO) 0.1 10^3/uL (0.0-0.6); ABSOLUTE LYMPHOCYTES (AUTO) 1.3 10^3/uL (0.5-4.7); ABSOLUTE MONOCYTES (AUTO) 0.6 10^3/uL (0.1-1.4); ABSOLUTE NEUT (AUTO) 4.3 10^3/uL (1.7-8.2); BASOPHILS % (AUTO) 1.2 % (0-2); EOSINOPHILS % (AUTO) 1.6 % (0-6); HEMATOCRIT 37.3 % (37.9-51.0); HEMOGLOBIN 12.6 g/dL (13.5-17.0); LYMPHOCYTES % (AUTO) 19.8 % (13-45); MEAN CORPUSCULAR HEMOGLOBIN 32.3 pg (27.0-33.4); MEAN CORPUSCULAR HGB CONC 33.6 g/dL (32.0-36.0); MEAN CORPUSCULAR VOLUME 96 fl (80-97); PLATELET COUNT 260 10^3/uL (150-450); RED BLOOD COUNT 3.89 10^6/uL (4.35-5.55); RED CELL DISTRIBUTION WIDTH 14.7 % (11.5-14.0); SEGMENTED NEUTROPHILS % (AUTO) 67.4 % (42-78); TOTAL CELLS COUNTED % (AUTO) 100 %; WHITE BLOOD COUNT 6.3 10^3/uL (4.0-10.5)
[2018-09-27 21:39] LABS: ALANINE AMINOTRANSFERASE 66 U/L (21-72); ALKALINE PHOSPHATASE 110 U/L (38-126); ANION GAP 12 (5-19); ASPARTATE AMINO TRANSFERASE 55 U/L (17-59); BILIRUBIN,DIRECT 0.3 mg/dL (0.0-0.4); BILIRUBIN,TOTAL 0.6 mg/dL (0.2-1.3); BLOOD UREA NITROGEN 24 mg/dL (7-20); CALCIUM 9.1 mg/dL (8.4-10.2); CARBON DIOXIDE 29 mmol/L (22-30); CHLORIDE 81 mmol/L (98-107); LIPASE 122.6 U/L (23-300); POTASSIUM 4.7 mmol/L (3.6-5.0); SODIUM 121.6 mmol/L (137-145); TOTAL PROTEIN 6.6 g/dL (6.3-8.2)
[2018-09-27 21:57] LABS: GLUCOSE 988 mg/dL (75-110)
[2018-09-27] MEDS ORDERED: NORMAL SALINE 1000 ML 1,000 ML IV ONE (22:14)
[2018-09-27] MEDS ORDERED: METOCLOPRAMIDE HCL INJ/PF 10 MG/2 ML SDV IV ONE (22:14)
[2018-09-27] MEDS ORDERED: INSULIN REG, HUMAN 100 UNIT/ML 3 ML VIAL (PYX) SUBCUT ONE (22:53)
[2018-09-27 22:55] LABS: VENOUS BLOOD BASE EXCESS -15.9 mmol/L; VENOUS BLOOD HCO3 8.4 mmol/L (20-32); VENOUS BLOOD PH 7.37 (7.30-7.42)
[2018-09-27 22:57] LABS: VENOUS BLOOD PCO2 14.9 mmHg (35-63)
[2018-09-27 23:22] LABS: ALCOHOL < 10 mg/dL (NONE DETECTED)
--- NOTE | 2018-09-28 00:35 | ER Document Report ---
ED General - General Chief Complaint: High Blood Sugar Stated Complaint: DIZZNESS,WEAK Time Seen by Provider: 09/27/18 20:24 Primary Care Provider: SHASHANK BAILEY MD [Primary Care Provider] - Follow up as needed Mode of Arrival: Ambulatory Notes: Patient is a 58-year-old male currently homeless, history of insulin-dependent type 2 diabetes, hypertension, alcohol abuse, presents with complaints of hyperglycemia, nausea, vomiting and fatigue. Patient reports that he has been "guessing" his insulin dosing as he does not have a glucometer. States that he came to the emergency department tonight because it was getting extremely cold outside, his phone was alarming that it was no longer going to be able to function and he was concerned about his high blood sugar. Patient was hospitali ailyn in June under similar circumstances, states that he has been unable to follow-up with his primary care doctor due to lack of insurance and resources. In regards to his nausea vomiting he states that these have improved since receiving IV antiemetics and IV fluids here in the emergency department. Nothing seemed to worsen the symptoms. States that he also developed the symptoms when he becomes hyperglycemic. TRAVEL OUTSIDE OF THE [place] IN LAST 30 DAYS: No - Related Data Allergies/Adverse Reactions: Penicillins Allergy (Severe, Verified 09/27/18 22:25) Swelling of Throat Past Medical History - General Information source: Patient - Social History Smoking Status: Current Every Day Smoker Frequency of alcohol use: Occasional Drug Abuse: None Lives with: Homeless Family History: CAD Patient has suicidal ideation: No Patient has homicidal ideation: No Endocrine Medical History: Reports: Hx Diabetes Mellitus Type 1, Hx Diabetes Mellitus Type 2 Renal/ Medical History: Denies: Hx Peritoneal Dialysis GI Medical History: Reports: Hx Gastroesophageal Reflux Disease, Hx Ulcer Musculoskeletal Medical History: Reports Hx Arthritis - RA Psychiatric Medical History: Reports: Hx Depression - anxiety Past Surgical History: Reports: Hx Cholecystectomy, Hx Orthopedic Surgery - right rotator, right hand carpel sheeba, left knee - Immunizations Hx Diphtheria, Pertussis, Tetanus Vaccination: Yes Hx Pneumococcal Vaccination: 04/23/14 Review of Systems - Review of Systems Notes: Constitutional: Negative for fever. HENT: Negative for sore throat. Eyes: Negative for visual changes. Cardiovascular: Negative for chest pain. Positive for lightheadedness Respiratory: Negative for shortness of breath. Gastrointestinal: Positive for nausea and vomiting Genitourinary: Negative for dysuria. Musculoskeletal: Negative for back pain. Skin: Negative for rash. Neurological: Negative for headaches, weakness or numbness. 10 point ROS negative except as marked above and in HPI. Physical Exam - Vital signs Vitals: Temp Pulse Resp BP Pulse Ox 98.8 F 97 18 174/85 H 97 09/27/18 20:17 09/27/18 20:17 09/27/18 20:17 09/27/18 20:17 09/27/18 20:17 Interpretation: Hypertensive Notes: PHYSICAL EXAMINATION: GENERAL: Well-appearing, well-nourished and in no acute distress. HEAD: Atraumatic, normocephalic. EYES: Pupils equal round and reactive to light, extraocular movements intact, sclera anicteric, conjunctiva are normal. ENT: nares patent, oropharynx clear without exudates. Moderately dry mucous membranes. NECK: Normal range of motion, supple without lymphadenopathy LUNGS: Breath sounds clear to auscultation bilaterally and equal. No wheezes rales or rhonchi. HEART: Regular rate and rhythm without murmurs ABDOMEN: Soft, nontender, normoactive bowel sounds. No guarding, no rebound. No masses appreciated. EXTREMITIES: Normal range of motion, no pitting or edema. No cyanosis. NEUROLOGICAL: No focal neurological deficits. Moves all extremities spontaneously and on command. PSYCH: Normal mood, normal affect. SKIN: Warm, Dry, normal turgor, no rashes or lesions noted. Course - Re-evaluation Re-evalutation: 09/28/18 00:33 Patient presents with nausea, vomiting, epigastric abdominal pain, market hyperglycemia without evidence of diabetic ketoacidosis. Patient's venous blood gas does appear to show that he is compensating with a respiratory alkalosis with a normal pH suggestive that there may be an underlying ketosis process that is not identifiable although notably his urinalysis is without ketones. Patient's initial tachycardia improved with IV fluid resuscitation. Patient is homeless, does not have access to primary care, does not of a glucometer, no access to regular use of medications. 09/28/18 00:51 Discussed this patient with the hospitalist who does not advise admission given the patient is not diabetic ketoacidosis, chronically, and I do agree with this assessment. I have had a social work consult placed for the patient. His blood sugar has trended down appropriately with insulin here in the emergency department. Heart rate has normalized currently heart rate is in the 90s. 09/28/18 01:19 Repeat basic metabolic panel is completely normalized. Patient feels much improved. Vitals within normal limits. Our manager social media will contact in the morning to attempt to improve his [place] is transition social worker and medications as well as. Patient is in agreement. - Vital Signs Vital signs: Temp Pulse Resp BP Pulse Ox 98.2 F 97 19 142/84 H 97 09/28/18 00:34 09/27/18 20:17 09/28/18 01:31 09/28/18 01:31 09/28/18 01:31 - Laboratory Result Diagrams: 09/27/18 21:06 09/28/18 01:00 Laboratory results interpreted by me: 09/27/18 09/27/18 09/27/18 20:42 21:06 21:06 RBC 3.89 L Hgb 12.6 L Hct 37.3 L RDW 14.7 H VBG pCO2 VBG HCO3 Sodium 121.6 L Chloride 81 L BUN 24 H Glucose 988 H* POC Glucose Urine Glucose (UA) >=500 H Urine Blood SMALL H 09/27/18 09/27/18 09/28/18 22:40 23:57 01:00 RBC Hgb Hct RDW VBG pCO2 14.9 L* VBG HCO3 8.4 L Sodium 132.3 L Chloride BUN Glucose 248 H POC Glucose 529 H* Urine Glucose (UA) Urine Blood 09/28/18 01:43 RBC Hgb Hct RDW VBG pCO2 VBG HCO3 Sodium Chloride BUN Glucose POC Glucose 164 H Urine Glucose (UA) Urine Blood - Diagnostic Test Radiology reviewed: Image reviewed, Reports reviewed Radiology results interpreted by me: 09/28/18 01:20 Chest x-ray: No acute infiltrate or pneumothorax Discharge - Discharge Clinical Impression: Uncontrolled diabetes mellitus Qualifiers: Diabetes mellitus type: type 2 Glycemic state: with hyperglycemia Qualified Code(s): E11.65 - Type 2 diabetes mellitus with hyperglycemia Hypertension Qualifiers: Hypertension type: essential hypertension Qualified Code(s): I10 - Essential (primary) hypertension Nausea & vomiting Qualifiers: Vomiting type: unspecified Vomiting Intractability: non-intractable Qualified Code(s): R11.2 - Nausea with vomiting, unspecified Condition: Stable Disposition: HOME, SELF-CARE Additional Instructions: You need to followup urgently with your primary care doctor as your blood sugars were dangerously high today. You did not have any evidence of a dangerous condition associated with these blood sugars at this time. However, it is very important that you get your blood sugars under control. Please take all of your medications exactly as directed. You should avoid foods that are high in carbohydrates and sugary foods. Please return to emergency department immediately if you develop weakness, persistent vomiting, confusion, or any other symptoms that are concerning to you. Referrals: SHASHANK BAILEY MD [Primary Care Provider] - Follow up as needed
[2018-09-28] MEDS ORDERED: INSULIN REG, HUMAN 100 UNIT/ML 3 ML VIAL (PYX) SUBCUT ONE (00:50)
[2018-09-28] MEDS ORDERED: RINGERS SOLUTION,LACTATED 1,000 ML IV ONE (00:52)
[2018-09-28] MEDS ORDERED: POTASSIUM CHLORIDE 10 MEQ CAPSULE.ER PO ONE (00:53)
[2018-09-28 01:25] LABS: ANION GAP 6 (5-19); BLOOD UREA NITROGEN 19 mg/dL (7-20); CARBON DIOXIDE 27 mmol/L (22-30); CHLORIDE 99 mmol/L (98-107); GLUCOSE 248 mg/dL (75-110); SODIUM 132.3 mmol/L (137-145)
[2018-09-28 01:36] LABS: POTASSIUM 3.6 mmol/L (3.6-5.0)
[2018-09-28 02:38] VITALS: BP 139/74
== END 2018-09-28 02:41 | disposition home or self-care (01) ==
LOC: ER 19:53
DX: R11.2 Nausea with vomiting, unspecified (principal); E11.65 Type 2 diabetes mellitus with hyperglycemia; I10 Essential (primary) hypertension; R42 Dizziness and giddiness; R53.1 Weakness; R10.13 Epigastric pain; R53.83 Other fatigue; F17.200 Nicotine dependence, unspecified, uncomplicated; Z79.4 Long term (current) use of insulin; Z88.0 Allergy status to penicillin; Z90.49 Acquired absence of other specified parts of digestive tract
CPT/HCPCS: 99285; 96361; 96374; 36415; 82962; 80307; 83690; 85025; 80048; 80053; 81001; 82803; 71046; J2765; J1815 ×2; J7030; J7120 ×2

== ENCOUNTER 2018-11-18 21:00 | Emergency (ER) | payer MEDICAID ==
--- NOTE | 2018-11-18 21:35 | EKG REPORT ---
SEVERITY:- BORDERLINE ECG - SINUS RHYTHM PROBABLE LEFT ATRIAL ABNORMALITY : Confirmed by: Dimas Rivera MD 18-Nov-2018 21:34:11
[2018-11-18] MEDS ORDERED: ONDANSETRON HCL INJ/PF 4 MG/2 ML SDV IV ONE (21:38)
[2018-11-18] MEDS ORDERED: NORMAL SALINE 1000 ML 1,000 ML IV ONE ×2 (21:38→23:13)
[2018-11-18 21:41] LABS: APPEARANCE,URINE CLEAR; BILIRUBIN,URINE NEGATIVE (NEGATIVE); COLOR,URINE COLORLESS; GLUCOSE, URINE >=500 mg/dL (NEGATIVE); KETONES,URINE NEGATIVE (NEGATIVE); LEUKOCYTE ESTERASE,URINE NEGATIVE (NEGATIVE); NITRITE,URINE NEGATIVE (NEGATIVE); PROTEIN,URINE NEGATIVE (NEGATIVE); URINE SPECIFIC GRAVITY 1.007; UROBILINOGEN,URINE NEGATIVE mg/dL (<2.0)
--- NOTE | 2018-11-18 21:46 | ER Document Report ---
ED Blood Sugar Problem - General Chief Complaint: High Blood Sugar Stated Complaint: DIABETIC PROBLEMS Time Seen by Provider: 11/18/18 21:24 Primary Care Provider: SHASHANK BAILEY MD [Primary Care Provider] - Follow up as needed TRAVEL OUTSIDE OF THE [place] IN LAST 30 DAYS: No - HPI Notes: Patient is a 58-year-old male who presents to the emergency department with a chief complaint of elevated blood sugars. Patient reports that he is a insulin- dependent type I diabetic and over the past 2 to 3 weeks has had elevated blood sugars. Patient states that he was seen 3 weeks ago in the emergency department for the same. Patient was not admitted at that time. Patient states over the past 2 to 3 weeks feeling weak, tired, having a headache, increased urination, and blurred vision. Patient reports taking his blood sugar at and it began over 500. Patient does take NovoLog and Lantus. Patient is homeless so he does not refrigerator. Patient is unsure if the medication is any good. Patient does have a history of high cholesterol, neuropathy, hypertension. Patient states that 3 days ago he was also having left-sided chest pain that was nonradiating with belching. Has not had chest pain since then. Complaint of nausea and vomiting 5 times over the past 24 hours. - Related Data Allergies/Adverse Reactions: Penicillins Allergy (Severe, Verified 09/27/18 22:25) Swelling of Throat Past Medical History - Social History Smoking Status: Current Every Day Smoker Cigarette use (# per day): Yes - 1/2 ppd Smoking Education Provided: Yes Frequency of alcohol use: Rare Drug Abuse: None Lives with: Homeless Family History: CAD Endocrine Medical History: Reports: Hx Diabetes Mellitus Type 1, Hx Diabetes Mellitus Type 2 Renal/ Medical History: Denies: Hx Peritoneal Dialysis GI Medical History: Reports: Hx Gastroesophageal Reflux Disease, Hx Ulcer Musculoskeletal Medical History: Reports Hx Arthritis - RA Psychiatric Medical History: Reports: Hx Depression - anxiety Past Surgical History: Reports: Hx Cholecystectomy, Hx Orthopedic Surgery - right rotator, right hand carpel sheeba, left knee - Immunizations Hx Diphtheria, Pertussis, Tetanus Vaccination: Yes Hx Pneumococcal Vaccination: 04/23/14 Review of Systems - Review of Systems Constitutional: See HPI EENT: No symptoms reported Cardiovascular: See HPI Respiratory: No symptoms reported Gastrointestinal: See HPI Genitourinary: No symptoms reported Male Genitourinary: No symptoms reported Musculoskeletal: No symptoms reported Skin: No symptoms reported Hematologic/Lymphatic: No symptoms reported Neurological/Psychological: No symptoms reported Physical Exam - Vital signs Vitals: Resp Pulse Ox 29 H 95 11/18/18 21:01 11/18/18 21:01 - Notes Notes: GENERAL: Well-appearing, well-nourished and in no acute distress. HEAD: Atraumatic, normocephalic. EYES: Pupils equal round and reactive to light, extraocular movements intact, sclera anicteric, conjunctiva are normal. ENT: TMs normal, nares patent, oropharynx clear without exudates. Moist mucous membranes. NECK: Normal range of motion, supple without lymphadenopathy or JVD. LUNGS: Breath sounds clear to auscultation bilaterally and equal. No wheezes rales or rhonchi. HEART: Regular rate and rhythm without murmurs, rubs or gallops. ABDOMEN: Soft, nontender, normoactive bowel sounds. No guarding, no rebound. No masses appreciated. EXTREMITIES: Normal range of motion, no pitting or edema. No clubbing or cyanosis. NEUROLOGICAL: Cranial nerves II through XII grossly intact. Normal speech. PSYCH: Normal mood, normal affect. SKIN: Warm, Dry, normal turgor, no rashes or lesions noted. Course - Re-evaluation Re-evalutation: Patient's blood sugar was found to be in the 700s. Discussed this finding with Dr. Singleton as well as the results of the VBG. Patient does not appear to be in metabolic acidosis as is pH is normal as well as his anion gap. Spoke with Dr. Singleton regarding a insulin dosage, patient to receive 20 units subq and monitor patient closely. 11/19/18 01:53 Patient reports feeling much better after receiving IV fluids. Patient's blood sugar in the 200s at this time. Will provide a p.o. challenge as patient states his nausea has improved and recheck check blood glucose. She is alert and oriented x4. Patient denies pain. 11/19/18 03:57 Patient is resting comfortably on stretcher. The glucose did decrease into the 80s. Patient has eaten some food and tolerated p.o. Patient reports feeling much better. Will place patient on a social consult. Will obtain repeat glucose prior to discharge. 11/19/18 Patient reports feeling much better. Patient is tolerating p.o. Patient does have a glucometer with him informed patient to keep an eye on his blood sugars today as they have been up and down after receiving insulin. P chelitaient states that he is very knowledgeable with his diabetes and can tell when his sugar is getting low or high. Informed patient to return if he feels shaky, dizzy, has uncontrollable vomiting, or altered mental status. Patient verbalizes understanding has questions at this time. Denies needing lancets or additional supplies at this time. Patient would like a consult placed for social work to potentially help him with the resources in the community. - Vital Signs Vital signs: Temp Pulse Resp BP Pulse Ox 98 F 19 137/82 H 95 11/19/18 04:01 11/19/18 05:01 11/19/18 05:01 11/19/18 05:01 - Laboratory Result Diagrams: 11/18/18 20:17 11/18/18 20:17 Laboratory results interpreted by me: 11/18/18 11/18/18 11/18/18 20:17 20:17 20:17 RBC 3.49 L Hgb 11.6 L Hct 34.0 L RDW 14.7 H VBG HCO3 Sodium 127.6 L Chloride 96 L Carbon Dioxide 18 L Glucose 749 H* POC Glucose Urine Glucose (UA) >=500 H 11/18/18 11/19/18 11/19/18 22:04 00:10 01:21 RBC Hgb Hct RDW VBG HCO3 19.4 L Sodium Chloride Carbon Dioxide Glucose POC Glucose 541 H* 227 H Urine Glucose (UA) 11/19/18 03:35 RBC Hgb Hct RDW VBG HCO3 Sodium Chloride Carbon Dioxide Glucose POC Glucose 145 H Urine Glucose (UA) 11/18/18 22:07 Urinalysis revealed a glucose greater than 500. No ketones noted in the urine. Lab work pending. 11/19/18 It does not appear that patient is has metabolic acidosis. Patient has a normal anion gap as well as a normal pH. Discharge - Discharge Clinical Impression: Hyperglycemia Diabetes Qualifiers: Diabetes mellitus type: type 1 Diabetes mellitus complication status: with hyperglycemia Qualified Code(s): E10.65 - Type 1 diabetes mellitus with hyperglycemia Nausea & vomiting Qualifiers: Vomiting type: unspecified Vomiting Intractability: non-intractable Qualified Code(s): R11.2 - Nausea with vomiting, unspecified Condition: Stable Disposition: HOME, SELF-CARE Additional Instructions: Today you were seen in the emergency department for elevated blood sugar. On arrival your blood sugar was in the 700s. We have given you insulin, IV fluids, and medication to treat your hyperglycemia. I will place a social consult so someone will be in contact with you regarding your diabetes management, including your medications. You have stated that you have a glucometer with you, please check your blood sugars regularly. Please return to the emergency department for low blood sugar or high blood sugar, dizziness, chest pain, un controllable vomiting, fever, or any other concerning signs or symptoms. Diabetes You have an abnormally high blood sugar, suspicious for diabetes. Not all high blood sugar requires long-term treatment. High blood sugar can be due to medications, , or the stress of illness. (These cases are "borderline diabetes.") If the doctor feels your high blood sugar might get better with time, you may not require treatment now. You will be scheduled for further evaluation. It's very important that you follow through. Uncontrolled high blood sugar leads to early heart disease, strokes, nerve damage, eye damage, and kidney damage. All diabetics should follow a diet designed to control the blood sugar. Overweight diabetics should exercise regularly and lose weight. If this is not sufficient to control the blood sugar, pills or insulin shots are necessary. Younger people who develop diabetes almost always require insulin daily. Home testing of blood sugars or urine sugar is required. Diabetic teaching is available to help you figure insulin doses and monitor the blood sugar. Call the physician if there is faintness, excess sleepiness, or very rapid breathing. If hypoglycemia (LOW blood sugar) develops, symptoms are shakiness, weakness, sweating, and confusion. In this case, you should eat or drink something with sugar at once. Referrals: SHASHANK BAILEY MD [Primary Care Provider] - Follow up as needed
[2018-11-18 22:13] LABS: ABSOLUTE BASOPHILS # (AUTO) 0.1 10^3/uL (0.0-0.2); ABSOLUTE EOSINOPHILS # (AUTO) 0.1 10^3/uL (0.0-0.6); ABSOLUTE LYMPHOCYTES (AUTO) 1.4 10^3/uL (0.5-4.7); ABSOLUTE MONOCYTES (AUTO) 0.5 10^3/uL (0.1-1.4); ABSOLUTE NEUT (AUTO) 4.3 10^3/uL (1.7-8.2); BASOPHILS % (AUTO) 1.8 % (0-2); EOSINOPHILS % (AUTO) 2.3 % (0-6); HEMOGLOBIN 11.6 g/dL (13.5-17.0); LYMPHOCYTES % (AUTO) 22.1 % (13-45); MEAN CORPUSCULAR HEMOGLOBIN 33.1 pg (27.0-33.4); MEAN CORPUSCULAR VOLUME 97 fl (80-97); MONOCYTES % (AUTO) 7.2 % (3-13); PLATELET COUNT 274 10^3/uL (150-450); RED BLOOD COUNT 3.49 10^6/uL (4.35-5.55); RED CELL DISTRIBUTION WIDTH 14.7 % (11.5-14.0); SEGMENTED NEUTROPHILS % (AUTO) 66.6 % (42-78); TOTAL CELLS COUNTED % (AUTO) 100 %; WHITE BLOOD COUNT 6.4 10^3/uL (4.0-10.5)
--- NOTE | 2018-11-18 22:15 | RADIOLOGY REPORT (SQ) ---
XR CHEST 1 VIEW CLINICAL STATEMENT: sob COMPARISON: 09/27/2018 FINDINGS: Cardiomediastinal silhouette is within normal limits. There is no focal lung consolidation or pleural effusion. No evidence of pulmonary edema or pneumothorax. IMPRESSION: No acute cardiopulmonary disease.
[2018-11-18 22:27] LABS: VENOUS BLOOD BASE EXCESS -5.8 mmol/L; VENOUS BLOOD HCO3 19.4 mmol/L (20-32); VENOUS BLOOD PCO2 37.3 mmHg (35-63); VENOUS BLOOD PH 7.34 (7.30-7.42)
[2018-11-18 22:30] LABS: ALANINE AMINOTRANSFERASE 55 U/L (21-72); ALBUMIN 3.5 g/dL (3.5-5.0); ALKALINE PHOSPHATASE 88 U/L (38-126); ANION GAP 14 (5-19); ASPARTATE AMINO TRANSFERASE 50 U/L (17-59); BILIRUBIN,DIRECT 0.2 mg/dL (0.0-0.4); BILIRUBIN,TOTAL 0.2 mg/dL (0.2-1.3); BLOOD UREA NITROGEN 15 mg/dL (7-20); CALCIUM 9.2 mg/dL (8.4-10.2); CARBON DIOXIDE 18 mmol/L (22-30); CHLORIDE 96 mmol/L (98-107); POTASSIUM 4.4 mmol/L (3.6-5.0); SODIUM 127.6 mmol/L (137-145); TOTAL PROTEIN 6.3 g/dL (6.3-8.2)
[2018-11-18] MEDS ORDERED: ACETAMINOPHEN 325 MG TABLET PO ONE (22:36)
[2018-11-18 22:43] LABS: GLUCOSE 749 mg/dL (75-110)
[2018-11-18] MEDS ORDERED: INSULIN REG, HUMAN 100 UNIT/ML 3 ML VIAL (PYX) SUBCUT ONE (23:13)
[2018-11-19 05:12] VITALS: BP 137/82
== END 2018-11-19 05:11 | disposition home or self-care (01) ==
LOC: ER 21:00
DX: E10.40 Type 1 diabetes mellitus with diabetic neuropathy, unspecified (principal); E10.65 Type 1 diabetes mellitus with hyperglycemia; R11.2 Nausea with vomiting, unspecified; Z79.4 Long term (current) use of insulin; I10 Essential (primary) hypertension; F17.210 Nicotine dependence, cigarettes, uncomplicated
CPT/HCPCS: 93005; 99284; 96361; 96374; 36415; 82962; 85025; 80053; 81001; 84484; 82803; 71045; 93010; J3490; J1815; J2405; J7030

== ENCOUNTER 2018-11-29 11:12 | Inpatient (IN) | payer MEDICAID ==
[2018-11-29] MEDS ORDERED: NORMAL SALINE 1000 ML 1,000 ML IV ONE ×2 (11:18→17:44)
[2018-11-29] MEDS ORDERED: METOCLOPRAMIDE HCL INJ/PF 10 MG/2 ML SDV IV ONE (11:25)
[2018-11-29] MEDS ORDERED: HYDROMORPHONE HCL INJ/PF 2 MG/ML AMPULE IV ONE (11:25)
--- NOTE | 2018-11-29 11:25 | ER Document Report ---
ED General - General Stated Complaint: NAUSEA Time Seen by Provider: 11/29/18 11:17 Primary Care Provider: SHASHANK BAILEY MD [Primary Care Provider] - Follow up as needed Notes: 58-year-old male with diabetes and alcoholism history of DKA presents with 3 days of nausea vomiting and epigastric pain rating to the back similar to past pancreatitis but thinks he is in DKA. Decreased oral intake and decreased urine output. Blood sugar read high at home but was in the upper 300s for EMS. Denies blood in his vomit skin infections perineal pain headache or fevers. TRAVEL OUTSIDE OF THE [place] IN LAST 30 DAYS: No - Related Data Allergies/Adverse Reactions: Penicillins Allergy (Severe, Verified 09/27/18 22:25) Swelling of Throat Past Medical History - Social History Smoking Status: Former Smoker Family History: CAD Endocrine Medical History: Reports: Hx Diabetes Mellitus Type 1, Hx Diabetes Mellitus Type 2 Renal/ Medical History: Denies: Hx Peritoneal Dialysis GI Medical History: Reports: Hx Gastroesophageal Reflux Disease, Hx Ulcer Musculoskeletal Medical History: Reports Hx Arthritis - RA Psychiatric Medical History: Reports: Hx Depression - anxiety Past Surgical History: Reports: Hx Cholecystectomy, Hx Orthopedic Surgery - right rotator, right hand carpel sheeba, left knee - Immunizations Hx Diphtheria, Pertussis, Tetanus Vaccination: Yes Hx Pneumococcal Vaccination: 04/23/14 Review of Systems - Review of Systems Notes: REVIEW OF SYSTEMS GEN: Denies fever, chills, weight loss ENT: Denies sore throat, nasal discharge, ear pain EYES: Denies blurry vision, eye pain, discharge CV: Denies chest pain, palpitations, edema RESP: Denies cough, shortness of breath, wheezing GI: abdominal pain, nausea, vomiting, diarrhea MSK: Denies joint pain/swelling, edema, SKIN: Denies rash, skin lesions LYMPH: Denies swollen glands/lymph nodes NEURO: Denies headache, focal weakness or numbness, dizziness PSYCH: Denies depression, suicidal or homicidal ideation PHYSICAL EXAMINATION General: No acute distress, well-nourished Head: Atraumatic, normocephalic ENT: Mouth normal, oropharynx moist, no exudates or tonsillar enlargement Eyes: Conjunctiva normal, pupils equal, lids normal Neck: No JVD, supple, no guarding CVS: Normal rate, regular rhythm, no murmurs Resp: No resp distress, equal and normal breath sounds bilaterally GI: Thin bag of dark-colored vomit not coffee-ground. Nondistended, soft, epigastric and right flank tenderness to palpation, no rebound or guarding Ext: No deformities, no edema, normal range of motion in upper and lower ext Back: No CVA or midline TTP Skin: No rash, warm Lymphatic: No lymphadeopathy noted Neuro: Awake, alert. Face symmetric. GCS 15. Physical Exam - Vital signs Vitals: Resp Pulse Ox 18 100 11/29/18 12:24 11/29/18 12:24 Course - Re-evaluation Re-evalutation: 11/29/18 11:24 Patient with alcoholism pancreatitis and diabetes presents with high blood sugar dehydration nausea and vomiting worrisome for DKA/dehydration/pancreatitis or gastritis. We will hydrate empirically, await labs and EKG to decide if and when he will need insulin/a drip, will treat pain. 11/29/18 13:24 Given for hydration and medications. Reassessed at 1 PM. Still having some nausea but looks better. Heart rate is about the 110s. EKG shows no ischemia. First lab result is elevated glucose, second lab result is a very low bicarb. The patient is in diabetic ketoacidosis with a potassium over 4 she will be started on insulin bolus and drip. Other than noncompliance alcohol use and dehydration I do not see any severe etiology of his DKA such as ischemia or infection. I have ordered him an additional liter of fluid as well as the above medications. Also has acute kidney injury. Discussed with Dr. Butcher for admission - Vital Signs Vital signs: Temp Pulse Resp BP Pulse Ox 97.8 F 19 149/55 H 100 11/29/18 12:39 11/29/18 12:31 11/29/18 12:31 11/29/18 12:31 - Laboratory Result Diagrams: 11/29/18 12:10 11/29/18 12:10 Laboratory results interpreted by me: 11/29/18 11/29/18 12:10 12:10 WBC 16.8 H RBC 4.26 L MCV 99 H RDW 15.3 H Seg Neutrophils % 83.3 H Lymphocytes % 8.6 L Absolute Neutrophils 14.0 H Chloride 86 L Carbon Dioxide 8 L* Anion Gap 48 H BUN 25 H Creatinine 2.25 H Est GFR ( Amer) 37 L Est GFR (Non-Af Amer) 30 L Glucose 414 H* Direct Bilirubin 0.9 H AST 669 H ALT 178 H Alkaline Phosphatase 319 H Critical Care Note - Critical Care Note Total time excluding time spent on procedures (mins): 31 Comments: The above patient is critically ill. Not including procedures, but including direct re-evaluations, speaking with patient and/or consultants, interpreting results, and documenting, I spent the total amount of minute listed listed above on critical care time Discharge - Discharge Clinical Impression: Diabetic ketoacidosis Qualifiers: Diabetes mellitus type: due to underlying condition Diabetes mellitus complication detail: without coma Qualified Code(s): E08.10 - Diabetes mellitus due to underlying condition with ketoacidosis without coma Condition: Critical Disposition: ADMITTED INPATIENT Admitting Provider: Dayanna (Hospitalist) Unit Admitted: IMCU Referrals: SHASHANK BAILEY MD [Primary Care Provider] - Follow up as needed
[2018-11-29 12:18] LABS: ABSOLUTE BASOPHILS # (AUTO) 0.1 10^3/uL (0.0-0.2); ABSOLUTE LYMPHOCYTES (AUTO) 1.4 10^3/uL (0.5-4.7); ABSOLUTE MONOCYTES (AUTO) 1.2 10^3/uL (0.1-1.4); BASOPHILS % (AUTO) 0.9 % (0-2); EOSINOPHILS % (AUTO) 0.1 % (0-6); HEMATOCRIT 42.2 % (37.9-51.0); HEMOGLOBIN 13.7 g/dL (13.5-17.0); LYMPHOCYTES % (AUTO) 8.6 % (13-45); MEAN CORPUSCULAR HEMOGLOBIN 32.2 pg (27.0-33.4); MEAN CORPUSCULAR HGB CONC 32.6 g/dL (32.0-36.0); MEAN CORPUSCULAR VOLUME 99 fl (80-97); MONOCYTES % (AUTO) 7.1 % (3-13); PLATELET COUNT 403 10^3/uL (150-450); RED BLOOD COUNT 4.26 10^6/uL (4.35-5.55); RED CELL DISTRIBUTION WIDTH 15.3 % (11.5-14.0); SEGMENTED NEUTROPHILS % (AUTO) 83.3 % (42-78); TOTAL CELLS COUNTED % (AUTO) 100 %; WHITE BLOOD COUNT 16.8 10^3/uL (4.0-10.5)
[2018-11-29 12:49] LABS: ALANINE AMINOTRANSFERASE 178 U/L (21-72); ALBUMIN 4.8 g/dL (3.5-5.0); ALCOHOL 85 mg/dL (NONE DETECTED); ALKALINE PHOSPHATASE 319 U/L (38-126); ASPARTATE AMINO TRANSFERASE 669 U/L (17-59); BILIRUBIN,DIRECT 0.9 mg/dL (0.0-0.4); BLOOD UREA NITROGEN 25 mg/dL (7-20); CALCIUM 9.7 mg/dL (8.4-10.2); LIPASE 70.1 U/L (23-300); POTASSIUM 4.1 mmol/L (3.6-5.0); TOTAL PROTEIN 7.8 g/dL (6.3-8.2)
[2018-11-29 12:54] LABS: CHLORIDE 86 mmol/L (98-107); SODIUM 142.2 mmol/L (137-145)
[2018-11-29 12:58] LABS: ANION GAP 48 (5-19)
[2018-11-29 13:00] LABS: CARBON DIOXIDE 8 mmol/L (22-30); GLUCOSE 414 mg/dL (75-110)
[2018-11-29] MEDS ORDERED: INSULIN REG, HUMAN 100 UNIT/ML 3 ML VIAL (PYX) IV ONE (13:01)
[2018-11-29] MEDS ORDERED: NORMAL SALINE 100 ML with INSULIN REGULAR, HUMAN 100 UNIT IV PRN ×4 (13:02→13:58)
[2018-11-29] MEDS ORDERED: INSULIN REG, HUMAN 100 UNIT/ML 3 ML VIAL (PYX) ONE (13:18)
[2018-11-29] MEDS ORDERED: DEXTROSE 40% GEL 15 GM TUBE PO PRN ×2 (13:57)
[2018-11-29] MEDS ORDERED: DEXTROSE 50%-WATER 25 GM/50 ML DISP.SYRIN IV PRN ×2 (13:57)
[2018-11-29] MEDS ORDERED: GLUCAGON,HUMAN RECOMB 1 MG INJ IM PRN (13:57)
[2018-11-29] MEDS ORDERED: LORAZEPAM INJ 2 MG/1 ML VIAL IV PRN (14:04)
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
[2018-11-29] MEDS: NORMAL SALINE 1000 ML 1,000 ML IV PRN ×2 (14:22→16:14)
--- NOTE | 2018-11-29 15:17 | RADIOLOGY REPORT (SQ) ---
EXAM DESCRIPTION: CT ABD/PELVIS NO ORAL OR IV COMPLETED DATE/TIME: 11/29/2018 3:01 pm REASON FOR STUDY: recent fall, flank pain, abd pain COMPARISON: None. TECHNIQUE: CT scan of the abdomen and pelvis performed without intravenous or oral contrast. Images reviewed with lung, soft tissue, and bone windows. Reconstructed coronal and sagittal MPR images revi ewed. All images stored on PACS. All CT scanners at this facility use dose modulation, iterative reconstruction, and/or weight based d osing when appropriate to reduce radiation dose to as low as reasonably achievable (ALARA). [facility]: Dose Right [facility]: CareDose [facility]: Dose Right [facility]: Teradose 4D [facility]: Pawzii RADIATION DOSE: mGy. LIMITATIONS: None. FINDINGS: LOWER CHEST: No significant findings. No nodules or infiltrates. NON-CONTRASTED LIVER, SPLEEN, ADRENALS: Evaluation limited by lack of IV contrast. No identified sign ificant masses. PANCREAS: No masses. No peripancreatic inflammatory changes. GALLBLADDER: Surgically absent. RIGHT KIDNEY AND URETER: No suspicious masses. Assessment limited by lack of IV contrast. No signif icant calcifications. No hydronephrosis or hydroureter. LEFT KIDNEY AND URETER: There is a 3 cm exophytic hypodense mass at the superior pole of the left kid branden that may represent a simple cyst, however this lesion is incompletely evaluated on this noncontra st examination. No significant calcifications. No hydronephrosis or hydroureter. AORTA AND RETROPERITONEUM: No aneurysm. No retroperitoneal masses or adenopathy. Scattered mural ca lcifications are seen throughout the aorta. BOWEL AND PERITONEAL CAVITY: No obvious masses or inflammatory changes. No free fluid. APPENDIX: Not visualized. PELVIS, BLADDER, AND ABDOMINAL WALL:No abnormal masses. No free fluid. Bladder normal. BONES: There is a mildly displaced acute fracture of the posterior aspect of the right 12th rib. No other acute bony abnormalities are appreciated. OTHER: No other significant finding. IMPRESSION: 1. Mildly displaced acute fracture of the posterior aspect of the right 12th rib 2. 3 cm exophytic hypodense mass at superior pole of the left kidney. This may represent a simple c yst however this lesion is incompletely evaluated on this noncontrast examination. Recommend correla tion with patient's history and consideration for a dedicated renal CT or MRI on a routine basis. COMMENT: Quality ID # [id number]: Final reports with documentation of one or more dose reduction techniques (e.g., Automated exposure control, adjustment of the mA and/or kV according to patient size, use of iterative reconstruction technique) TECHNICAL DOCUMENTATION: JOB ID: [id number] [employer]- All Rights Reserved Reading location - IP/workstation name: [email or web address]
[2018-11-29] MEDS: ONDANSETRON HCL INJ/PF 4 MG/2 ML SDV IV PRN (16:05)
[2018-11-29] MEDS: HEPARIN SOD (PORCINE) 5,000 UNIT/ML 1 ML SYRINGE SUBCUT SCH ×2 (16:06→23:17)
[2018-11-29 16:15] LABS: ARTERIAL BLOOD BASE EXCESS -10.7 mmol/L; ARTERIAL BLOOD H2CO3 0.78 mmol/L (1.05-1.35); ARTERIAL BLOOD HCO3 13.6 mmol/L (20-24); ARTERIAL BLOOD O2 SATURATION 97.1 % (94-98); ARTERIAL BLOOD PH 7.34 (7.35-7.45); ARTERIAL BLOOD PO2 97.1 mmHg (80-100); ARTERIAL BLOOD TOTAL CO2 14.4 mmol/L (23-27)
[2018-11-29 16:17] LABS: ARTERIAL BLOOD FIO2 21%
[2018-11-29 16:44] LABS: INTERNATIONAL RATION (INR) 0.95; PROTHROMBIN TIME 13.2 SEC (11.4-15.4)
[2018-11-29] MEDS: MORPHINE SULFATE 10 MG/ML INJ IV PRN ×2 (16:52→21:33)
[2018-11-29 16:53] LABS: BLOOD UREA NITROGEN 30 mg/dL (7-20); CALCIUM 7.8 mg/dL (8.4-10.2); POTASSIUM 4.3 mmol/L (3.6-5.0)
[2018-11-29 16:59] LABS: CARBON DIOXIDE 13 mmol/L (22-30); CHLORIDE 93 mmol/L (98-107); SODIUM 138.3 mmol/L (137-145)
[2018-11-29 17:03] LABS: ANION GAP 32 (5-19)
[2018-11-29 17:06] LABS: GLUCOSE 415 mg/dL (75-110)
[2018-11-29 17:33] LABS: APPEARANCE,URINE SLIGHTLY-CLOUDY; BILIRUBIN,URINE NEGATIVE (NEGATIVE); COLOR,URINE YELLOW; GLUCOSE, URINE >=500 mg/dL (NEGATIVE); KETONES,URINE 80 mg/dL (NEGATIVE); LEUKOCYTE ESTERASE,URINE NEGATIVE (NEGATIVE); NITRITE,URINE NEGATIVE (NEGATIVE); PROTEIN,URINE 100 mg/dL (NEGATIVE); URINE SPECIFIC GRAVITY 1.014; UROBILINOGEN,URINE NEGATIVE mg/dL (<2.0)
[2018-11-29] MEDS ORDERED: NORMAL SALINE 1000 ML 1,000 ML IV PRN (17:45)
--- NOTE | 2018-11-29 19:42 | EKG REPORT ---
SEVERITY:- ABNORMAL ECG - SINUS TACHYCARDIA LEFT ATRIAL ABNORMALITY PROLONGED QT INTERVAL TALL T WAVES ,? HYPERKALEMIA : Confirmed by: Vijaya Ham MD 29-Nov-2018 19:41:31
[2018-11-29] MEDS ORDERED: POTASSI CL 20 MEQ/D5-1/2NS 1L 1000 ML IV PRN (21:30)
[2018-11-29 23:32] LABS: BLOOD UREA NITROGEN 30 mg/dL (7-20); CHLORIDE 93 mmol/L (98-107); GLUCOSE 199 mg/dL (75-110); POTASSIUM 3.8 mmol/L (3.6-5.0); SODIUM 134.2 mmol/L (137-145)
[2018-11-29 23:47] LABS: ANION GAP 16 (5-19)
[2018-11-29 23:52] LABS: CARBON DIOXIDE 25 mmol/L (22-30)
[2018-11-30] MEDS ORDERED: INSULIN GLARGINE,HUM.REC.ANLOG 1,000 UNIT/10 ML VIAL (PYX) SUBCUT ONE (01:00)
[2018-11-30] MEDS ORDERED: POTASSIUM CHLORIDE 10 MEQ CAPSULE.ER PO ONE (01:00)
[2018-11-30] MEDS: MORPHINE SULFATE 10 MG/ML INJ IV PRN ×5 (02:02→22:07)
[2018-11-30] MEDS: ONDANSETRON HCL INJ/PF 4 MG/2 ML SDV IV PRN ×3 (03:38→20:00)
[2018-11-30 04:42] LABS: ABSOLUTE BASOPHILS # (AUTO) 0.1 10^3/uL (0.0-0.2); ABSOLUTE LYMPHOCYTES (AUTO) 1.9 10^3/uL (0.5-4.7); ABSOLUTE MONOCYTES (AUTO) 1.5 10^3/uL (0.1-1.4); ABSOLUTE NEUT (AUTO) 12.5 10^3/uL (1.7-8.2); BASOPHILS % (AUTO) 0.4 % (0-2); HEMATOCRIT 30.3 % (37.9-51.0); LYMPHOCYTES % (AUTO) 11.9 % (13-45); MEAN CORPUSCULAR HEMOGLOBIN 32.1 pg (27.0-33.4); MEAN CORPUSCULAR HGB CONC 34.2 g/dL (32.0-36.0); MONOCYTES % (AUTO) 9.4 % (3-13); PLATELET COUNT 257 10^3/uL (150-450); RED BLOOD COUNT 3.23 10^6/uL (4.35-5.55); RED CELL DISTRIBUTION WIDTH 14.7 % (11.5-14.0); SEGMENTED NEUTROPHILS % (AUTO) 78.3 % (42-78); TOTAL CELLS COUNTED % (AUTO) 100 %
[2018-11-30 05:03] LABS: HEMOGLOBIN 10.4 g/dL (13.5-17.0)
[2018-11-30 05:04] LABS: MEAN CORPUSCULAR VOLUME 94 fl (80-97)
[2018-11-30 05:15] LABS: ANION GAP 13 (5-19); BLOOD UREA NITROGEN 23 mg/dL (7-20); CALCIUM 7.7 mg/dL (8.4-10.2); CARBON DIOXIDE 26 mmol/L (22-30); CHLORIDE 91 mmol/L (98-107); GLUCOSE 246 mg/dL (75-110); SODIUM 130.4 mmol/L (137-145)
[2018-11-30] MEDS: HEPARIN SOD (PORCINE) 5,000 UNIT/ML 1 ML SYRINGE SUBCUT SCH ×3 (06:03→22:02)
[2018-11-30] MEDS: INSULIN LISPRO 100 UNIT/ML 3 ML VIAL SUBCUT SCH ×4 (08:38→22:02)
[2018-11-30 11:47] LABS: ANION GAP 13 (5-19); BLOOD UREA NITROGEN 18 mg/dL (7-20); CALCIUM 8.4 mg/dL (8.4-10.2); CARBON DIOXIDE 28 mmol/L (22-30); CHLORIDE 91 mmol/L (98-107); GLUCOSE 146 mg/dL (75-110); POTASSIUM 3.7 mmol/L (3.6-5.0); SODIUM 131.8 mmol/L (137-145)
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
[2018-11-30 13:59] LABS: ALANINE AMINOTRANSFERASE 113 U/L (21-72); ALBUMIN 3.3 g/dL (3.5-5.0); ALKALINE PHOSPHATASE 215 U/L (38-126); ASPARTATE AMINO TRANSFERASE 170 U/L (17-59); BILIRUBIN,DIRECT 0.3 mg/dL (0.0-0.4); BILIRUBIN,TOTAL 0.8 mg/dL (0.2-1.3); TOTAL PROTEIN 6.1 g/dL (6.3-8.2)
[2018-11-30] MEDS ORDERED: INSULIN GLARGINE,HUM.REC.ANLOG 1,000 UNIT/10 ML VIAL SUBCUT SCH (22:00)
[2018-12-01] MEDS: MORPHINE SULFATE 10 MG/ML INJ IV PRN ×4 (03:18→19:32)
[2018-12-01] MEDS: HEPARIN SOD (PORCINE) 5,000 UNIT/ML 1 ML SYRINGE SUBCUT SCH ×3 (05:37→21:08)
[2018-12-01] MEDS: ONDANSETRON HCL INJ/PF 4 MG/2 ML SDV IV PRN ×2 (05:37→19:37)
[2018-12-01] MEDS: INSULIN LISPRO 100 UNIT/ML 3 ML VIAL SUBCUT SCH ×3 (07:29→17:07)
[2018-12-01] MEDS: LIDOCAINE 5% (700 MG) TRANSDERMAL ADH..PATCH TP SCH (09:32)
[2018-12-01] MEDS: PANTOPRAZOLE SODIUM 40 MG VIAL IV SCH (09:32)
[2018-12-01] MEDS ORDERED: METOCLOPRAMIDE HCL ORAL SOLN 10 MG/10 ML UDCUP PO ONE (10:00)
[2018-12-01] MEDS ORDERED: MAG HYDROX/AL HYDROX/SIMETH SUSP 30 ML UDCUP PO ONE (10:00)
[2018-12-01] MEDS ORDERED: LIDOCAINE 2% VISCOUS SOLN 20 ML UDCUP PO ONE (10:00)
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
[2018-12-01 13:35] LABS: ABSOLUTE LYMPHOCYTES (AUTO) 1.7 10^3/uL (0.5-4.7); ABSOLUTE MONOCYTES (AUTO) 0.8 10^3/uL (0.1-1.4); ABSOLUTE NEUT (AUTO) 4.4 10^3/uL (1.7-8.2); BASOPHILS % (AUTO) 0.7 % (0-2); EOSINOPHILS % (AUTO) 0.6 % (0-6); HEMATOCRIT 34.2 % (37.9-51.0); HEMOGLOBIN 11.9 g/dL (13.5-17.0); LYMPHOCYTES % (AUTO) 23.9 % (13-45); MEAN CORPUSCULAR HEMOGLOBIN 32.5 pg (27.0-33.4); MEAN CORPUSCULAR HGB CONC 34.8 g/dL (32.0-36.0); MEAN CORPUSCULAR VOLUME 93 fl (80-97); PLATELET COUNT 226 10^3/uL (150-450); RED BLOOD COUNT 3.67 10^6/uL (4.35-5.55); RED CELL DISTRIBUTION WIDTH 14.2 % (11.5-14.0); SEGMENTED NEUTROPHILS % (AUTO) 63.8 % (42-78); TOTAL CELLS COUNTED % (AUTO) 100 %; WHITE BLOOD COUNT 6.9 10^3/uL (4.0-10.5)
[2018-12-01 13:53] LABS: ANION GAP 9 (5-19); BLOOD UREA NITROGEN 11 mg/dL (7-20); CALCIUM 9.3 mg/dL (8.4-10.2); CARBON DIOXIDE 29 mmol/L (22-30); CHLORIDE 94 mmol/L (98-107); GLUCOSE 145 mg/dL (75-110); SODIUM 132.3 mmol/L (137-145)
[2018-12-01] MEDS: LACTULOSE SYRUP 20 GM/30 ML UDCUP PO PRN (21:08)
[2018-12-01] MEDS: INSULIN GLARGINE,HUM.REC.ANLOG 1,000 UNIT/10 ML VIAL SUBCUT SCH (21:08)
[2018-12-02] MEDS: INSULIN LISPRO 100 UNIT/ML 3 ML VIAL SUBCUT SCH ×5 (01:26→21:44)
[2018-12-02] MEDS: OXYCODONE-ACETAMINOPHEN 5-325 MG TABLET PO PRN ×2 (01:27→13:22)
[2018-12-02] MEDS: HEPARIN SOD (PORCINE) 5,000 UNIT/ML 1 ML SYRINGE SUBCUT SCH ×3 (05:47→21:49)
[2018-12-02] MEDS: ONDANSETRON HCL INJ/PF 4 MG/2 ML SDV IV PRN (05:47)
[2018-12-02 07:49] LABS: ABSOLUTE BASOPHILS # (AUTO) 0.1 10^3/uL (0.0-0.2); ABSOLUTE EOSINOPHILS # (AUTO) 0.1 10^3/uL (0.0-0.6); ABSOLUTE LYMPHOCYTES (AUTO) 1.9 10^3/uL (0.5-4.7); ABSOLUTE MONOCYTES (AUTO) 0.6 10^3/uL (0.1-1.4); ABSOLUTE NEUT (AUTO) 2.5 10^3/uL (1.7-8.2); BASOPHILS % (AUTO) 1.2 % (0-2); EOSINOPHILS % (AUTO) 1.4 % (0-6); HEMATOCRIT 36.2 % (37.9-51.0); HEMOGLOBIN 12.3 g/dL (13.5-17.0); LYMPHOCYTES % (AUTO) 37.2 % (13-45); MEAN CORPUSCULAR HEMOGLOBIN 31.6 pg (27.0-33.4); MEAN CORPUSCULAR VOLUME 93 fl (80-97); MONOCYTES % (AUTO) 11.8 % (3-13); PLATELET COUNT 228 10^3/uL (150-450); RED BLOOD COUNT 3.89 10^6/uL (4.35-5.55); SEGMENTED NEUTROPHILS % (AUTO) 48.4 % (42-78); TOTAL CELLS COUNTED % (AUTO) 100 %; WHITE BLOOD COUNT 5.2 10^3/uL (4.0-10.5)
[2018-12-02 08:07] LABS: ALANINE AMINOTRANSFERASE 93 U/L (21-72); ALBUMIN 3.4 g/dL (3.5-5.0); ALKALINE PHOSPHATASE 175 U/L (38-126); ANION GAP 7 (5-19); ASPARTATE AMINO TRANSFERASE 92 U/L (17-59); BILIRUBIN,DIRECT 0.3 mg/dL (0.0-0.4); BILIRUBIN,TOTAL 0.7 mg/dL (0.2-1.3); BLOOD UREA NITROGEN 9 mg/dL (7-20); CALCIUM 9.3 mg/dL (8.4-10.2); CARBON DIOXIDE 30 mmol/L (22-30); CHLORIDE 97 mmol/L (98-107); GLUCOSE 130 mg/dL (75-110); POTASSIUM 3.8 mmol/L (3.6-5.0); SODIUM 134.3 mmol/L (137-145); TOTAL PROTEIN 6.2 g/dL (6.3-8.2)
[2018-12-02] MEDS: PANTOPRAZOLE SODIUM 40 MG VIAL IV SCH (09:04)
[2018-12-02] MEDS: LIDOCAINE 5% (700 MG) TRANSDERMAL ADH..PATCH TP SCH (09:05)
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
[2018-12-02] MEDS: INSULIN GLARGINE,HUM.REC.ANLOG 1,000 UNIT/10 ML VIAL SUBCUT SCH (21:44)
[2018-12-03] MEDS: OXYCODONE-ACETAMINOPHEN 5-325 MG TABLET PO PRN ×2 (02:02→14:08)
[2018-12-03] MEDS ORDERED: FLUTICASONE NASAL SPRAY 50 MCG/SPRY 120 SPRAY/16 GM NASL ONE (02:30)
[2018-12-03] MEDS ORDERED: DIPHENHYDRAMINE HCL 50 MG CAPSULE PO ONE (02:30)
[2018-12-03] MEDS ORDERED: FLUTICASONE NASAL SPRAY 50 MCG/SPRY 120 SPRAY/16 GM ONE (02:49)
[2018-12-03] MEDS: HEPARIN SOD (PORCINE) 5,000 UNIT/ML 1 ML SYRINGE SUBCUT SCH ×3 (06:13→21:38)
[2018-12-03] MEDS: INSULIN LISPRO 100 UNIT/ML 3 ML VIAL SUBCUT SCH ×4 (08:40→21:39)
[2018-12-03] MEDS: PANTOPRAZOLE SODIUM 40 MG VIAL IV SCH (10:00)
[2018-12-03] MEDS: LIDOCAINE 5% (700 MG) TRANSDERMAL ADH..PATCH TP SCH (10:01)
[2018-12-03] MEDS: FLUTICASONE NASAL SPRAY 50 MCG/SPRY 120 SPRAY/16 GM NASL SCH ×2 (10:01→21:41)
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
[2018-12-03] MEDS ORDERED: DIPHENHYDRAMINE HCL 25 MG CAPSULE PO PRN (15:11)
[2018-12-03] MEDS: INSULIN GLARGINE,HUM.REC.ANLOG 1,000 UNIT/10 ML VIAL SUBCUT SCH (21:37)
[2018-12-03] MEDS: LACTULOSE SYRUP 20 GM/30 ML UDCUP PO PRN (21:39)
[2018-12-04] MEDS: PHARMACY COMMUNICATION ORDER MC SCH ×2 (00:21→21:21)
[2018-12-04] MEDS: OXYCODONE-ACETAMINOPHEN 5-325 MG TABLET PO PRN ×2 (03:33→17:34)
[2018-12-04] MEDS: HEPARIN SOD (PORCINE) 5,000 UNIT/ML 1 ML SYRINGE SUBCUT SCH ×3 (06:01→21:20)
[2018-12-04] MEDS: INSULIN LISPRO 100 UNIT/ML 3 ML VIAL SUBCUT SCH ×4 (08:04→21:58)
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
[2018-12-04 09:15] LABS: ALANINE AMINOTRANSFERASE 88 U/L (21-72); ALBUMIN 3.2 g/dL (3.5-5.0); ALKALINE PHOSPHATASE 135 U/L (38-126); ANION GAP 8 (5-19); ASPARTATE AMINO TRANSFERASE 108 U/L (17-59); BILIRUBIN,DIRECT 0.3 mg/dL (0.0-0.4); BILIRUBIN,TOTAL 0.4 mg/dL (0.2-1.3); BLOOD UREA NITROGEN 10 mg/dL (7-20); CALCIUM 9.1 mg/dL (8.4-10.2); CARBON DIOXIDE 25 mmol/L (22-30); CHLORIDE 101 mmol/L (98-107); GLUCOSE 241 mg/dL (75-110); POTASSIUM 4.2 mmol/L (3.6-5.0); SODIUM 134.1 mmol/L (137-145); TOTAL PROTEIN 5.8 g/dL (6.3-8.2)
[2018-12-04 09:23] LABS: ABSOLUTE BASOPHILS # (AUTO) 0.1 10^3/uL (0.0-0.2); ABSOLUTE EOSINOPHILS # (AUTO) 0.1 10^3/uL (0.0-0.6); ABSOLUTE LYMPHOCYTES (AUTO) 2.2 10^3/uL (0.5-4.7); ABSOLUTE MONOCYTES (AUTO) 0.7 10^3/uL (0.1-1.4); ABSOLUTE NEUT (AUTO) 2.9 10^3/uL (1.7-8.2); BASOPHILS % (AUTO) 1.7 % (0-2); EOSINOPHILS % (AUTO) 2.1 % (0-6); HEMATOCRIT 34.4 % (37.9-51.0); HEMOGLOBIN 11.9 g/dL (13.5-17.0); LYMPHOCYTES % (AUTO) 36.2 % (13-45); MEAN CORPUSCULAR HEMOGLOBIN 32.5 pg (27.0-33.4); MEAN CORPUSCULAR HGB CONC 34.4 g/dL (32.0-36.0); MEAN CORPUSCULAR VOLUME 94 fl (80-97); MONOCYTES % (AUTO) 12.2 % (3-13); RED BLOOD COUNT 3.64 10^6/uL (4.35-5.55); RED CELL DISTRIBUTION WIDTH 14.2 % (11.5-14.0); SEGMENTED NEUTROPHILS % (AUTO) 47.8 % (42-78); TOTAL CELLS COUNTED % (AUTO) 100 %; WHITE BLOOD COUNT 6.1 10^3/uL (4.0-10.5)
[2018-12-04] MEDS: LIDOCAINE 5% (700 MG) TRANSDERMAL ADH..PATCH TP SCH (09:34)
[2018-12-04] MEDS: FLUTICASONE NASAL SPRAY 50 MCG/SPRY 120 SPRAY/16 GM NASL SCH ×2 (09:34→21:20)
[2018-12-04] MEDS: PANTOPRAZOLE SODIUM 40 MG TABLET.DR PO SCH (09:34)
[2018-12-04 09:48] LABS: PLATELET COUNT 246 10^3/uL (150-450)
[2018-12-04] MEDS ORDERED: MAGNESIUM CITRATE 296 ML BOTTLE PO ONE (10:00)
--- NOTE | 2018-12-04 16:07 | RADIOLOGY REPORT (SQ) ---
EXAM DESCRIPTION: CT ABD/PELVIS WITH IV ORAL COMPLETED DATE/TIME: 12/04/2018 3:21 pm REASON FOR STUDY: renal cyst COMPARISON: 11/29/2018. TECHNIQUE: CT scan of the abdomen and pelvis performed with intravenous and oral contrast using antoni alka scanning technique with dynamic intravenous contrast injection. Images reviewed with lung, soft t issue, and bone windows. Reconstructed coronal and sagittal MPR images reviewed. Delayed images for e valuation of the urinary system also acquired. All images stored on PACS. All CT scanners at this facility use dose modulation, iterative reconstruction, and/or weight based d osing when appropriate to reduce radiation dose to as low as reasonably achievable (ALARA). [facility]: Dose Right [facility]: CareDose [facility]: Dose Right [facility]: Teradose 4D [facility]: Kiwi Crate CONTRAST TYPE AND DOSE: contrast/concentration: Isovue 350.00 mg/ml; Total Contrast Delivered: 67.0 ml; Total Saline Delivered: 65.0 ml RENAL FUNCTION: GFR > 60. RADIATION DOSE: CT Rad equipment meets quality standard of care and radiation dose reduction techniq ues were employed. CTDIvol: 3.0 - 3.5 mGy. DLP: 317 mGy-cm. . LIMITATIONS: None. FINDINGS: LOWER CHEST: No significant findings. No nodules or infiltrates. LIVER: Normal size. No masses. No dilated ducts. SPLEEN: Normal size. No focal lesions. PANCREAS: No masses. No significant calcifications. No adjacent inflammation or peripancreatic fluid collections. Pancreatic duct not dilated. GALLBLADDER: Surgically absent. ADRENAL GLANDS: No significant masses or asymmetry. RIGHT KIDNEY AND URETER: No solid masses. No significant calcifications. No hydronephrosis or hyd roureter. LEFT KIDNEY AND URETER: 3 cm cyst measuring 11 HU. No solid masses. No significant calcifications. No hydronephrosis or hydroureter. AORTA AND VESSELS: No aneurysm. No dissection. Renal arteries, SMA, celiac without stenosis. RETROPERITONEUM: No retroperitoneal adenopathy, hemorrhage or masses. BOWEL AND PERITONEAL CAVITY: Abundant stool. No obstruction. No visualized masses. No free fluid. N o inflammatory changes or thickening of bowel wall. APPENDIX: Not visualized. PELVIS: No significant masses. Normal bladder. No free fluid. ABDOMINAL WALL: No masses. No hernias. BONES: No significant or acute findings. OTHER: No other significant finding. IMPRESSION: Benign left renal cyst. No acute findings. TECHNICAL DOCUMENTATION: JOB ID: [id number] Quality ID # [id number]: Final reports with documentation of one or more dose reduction techniques (e.g., Au tomated exposure control, adjustment of the mA and/or kV according to patient size, use of iterative reconstruction technique) 2010 [employer]- All Rights Reserved Reading location - IP/workstation name: [email or web address]
[2018-12-04] MEDS: INSULIN GLARGINE,HUM.REC.ANLOG 1,000 UNIT/10 ML VIAL SUBCUT SCH (21:21)
[2018-12-05 03:06] LABS: HEMATOCRIT 32.3 % (37.9-51.0); HEMOGLOBIN 11.2 g/dL (13.5-17.0); MEAN CORPUSCULAR HEMOGLOBIN 32.7 pg (27.0-33.4); MEAN CORPUSCULAR HGB CONC 34.5 g/dL (32.0-36.0); MEAN CORPUSCULAR VOLUME 95 fl (80-97); RED BLOOD COUNT 3.41 10^6/uL (4.35-5.55); RED CELL DISTRIBUTION WIDTH 14.3 % (11.5-14.0); WHITE BLOOD COUNT 7.9 10^3/uL (4.0-10.5)
[2018-12-05 03:29] LABS: ALANINE AMINOTRANSFERASE 77 U/L (21-72); ALBUMIN 3.1 g/dL (3.5-5.0); ALKALINE PHOSPHATASE 134 U/L (38-126); ANION GAP 9 (5-19); ASPARTATE AMINO TRANSFERASE 72 U/L (17-59); BILIRUBIN,DIRECT 0.2 mg/dL (0.0-0.4); BILIRUBIN,TOTAL 0.2 mg/dL (0.2-1.3); BLOOD UREA NITROGEN 15 mg/dL (7-20); CALCIUM 9.1 mg/dL (8.4-10.2); CARBON DIOXIDE 26 mmol/L (22-30); CHLORIDE 98 mmol/L (98-107); GLUCOSE 335 mg/dL (75-110); POTASSIUM 4.3 mmol/L (3.6-5.0); TOTAL PROTEIN 5.8 g/dL (6.3-8.2)
[2018-12-05 03:36] LABS: ABSOLUTE LYMPHOCYTES# (MANUAL) 2.5 10^3/uL (0.5-4.7); ABSOLUTE MONOCYTES # (MANUAL) 0.6 10^3/uL (0.1-1.4); ABSOLUTE NEUTROPHILS# (MANUAL) 4.7 10^3/uL (1.7-8.2); BASOPHILS % (MANUAL) 0 % (0-2); EOSINOPHILS % (MANUAL) 1 % (0-6); LYMPHOCYTES % (MANUAL) 32 % (13-45); METAMYELOCYTES % (MANUAL) 1 % (0); MONOCYTES % (MANUAL) 8 % (3-13); SEGMENTED NEUTROPHILS % (MAN) 58 % (42-78); TOTAL CELLS COUNTED 100
[2018-12-05 03:37] LABS: PLATELET CLUMPS PRESENT; PLATELET COMMENT ADEQUATE
[2018-12-05 03:38] LABS: PLATELET COUNT 286 10^3/uL (150-450); SCHISTOCYTES SLIGHT; STOMATOCYTES SLIGHT
[2018-12-05] MEDS: OXYCODONE-ACETAMINOPHEN 5-325 MG TABLET PO PRN (05:37)
[2018-12-05] MEDS: HEPARIN SOD (PORCINE) 5,000 UNIT/ML 1 ML SYRINGE SUBCUT SCH ×2 (05:38→15:55)
[2018-12-05 08:43] LABS: HEPATITIS A AB IGM Negative (Negative); HEPATITIS B CORE AB IGM Negative (Negative); HEPATITS B SURFACE ANTIGEN Negative (Negative)
[2018-12-05 09:07] LABS: HEPATITIS C VIRUS ANTIBODY >11.0 s/co ratio (0.0-0.9)
[2018-12-05] MEDS: INSULIN LISPRO 100 UNIT/ML 3 ML VIAL SUBCUT SCH ×3 (09:07→16:38)
[2018-12-05] MEDS: PANTOPRAZOLE SODIUM 40 MG TABLET.DR PO SCH (09:46)
[2018-12-05] MEDS: FLUTICASONE NASAL SPRAY 50 MCG/SPRY 120 SPRAY/16 GM NASL SCH (09:46)
[2018-12-05] MEDS: LIDOCAINE 5% (700 MG) TRANSDERMAL ADH..PATCH TP SCH (09:46)
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
[2018-12-05 15:38] VITALS: BP 137/74
== END 2018-12-05 17:10 | disposition home or self-care (01) | DRG 638 ==
LOC: ER 11:12 → EH 14:11 → 3N 11-30 01:40
PROVIDERS: ADMIT Internal Medicine; ATTEND Internal Medicine
DX: E10.10 Type 1 diabetes mellitus with ketoacidosis without coma (principal); N17.9 Acute kidney failure, unspecified; R45.851 Suicidal ideations; F10.20 Alcohol dependence, uncomplicated; K70.10 Alcoholic hepatitis without ascites; N28.1 Cyst of kidney, acquired; Y90.4 Blood alcohol level of 80-99 mg/100 ml; E10.40 Type 1 diabetes mellitus with diabetic neuropathy, unspecified; K21.9 Gastro-esophageal reflux disease without esophagitis; F41.9 Anxiety disorder, unspecified; I10 Essential (primary) hypertension; F32.9 Major depressive disorder, single episode, unspecified; Z59.0 Homelessness; M06.9 Rheumatoid arthritis, unspecified; Z90.49 Acquired absence of other specified parts of digestive tract; Z87.891 Personal history of nicotine dependence; Z82.49 Family history of ischemic heart disease and other diseases of the circulatory system; Z88.0 Allergy status to penicillin; B19.20 Unspecified viral hepatitis C without hepatic coma; Z79.4 Long term (current) use of insulin; Z91.81 History of falling
CPT/HCPCS: 36415; 36600; 74176; 74177; 80048; 80053; 80074; 80076; 80307; 81001; 82803; 82962; 83036; 83690; 83735; 85025; 85610; 93005; 93010; 96361; 96374; 96375; 99291; J1170; J1644; J1815; J2270; J2405; J2765; J3480; J3490; J7030; J7050; S0164